=== PATIENT | female | born 1985 | race Caucasian/White ===

== ENCOUNTER 2020-01-24 12:34 | Outpatient (CLI) | payer BC, SELFPAY ==
--- NOTE | ~2020-01-24 | CT_ITS ---
EXAMINATION: CT abdomen pelvis wo con DATE: 01/24/2020 13:00 INDICATION: Left abdominal pain. Hematuria. TECHNIQUE: Computed tomography (CT) of the abdomen and pelvis was performed without intravenous contr ast. Automated exposure control and iterative reconstruction technique were employed. The dose-length product was 185.04 mGy-cm. COMPARISON: None. FINDINGS: The visualized portions of the lung bases are clear without pneumonia or pleural effusion. The heart size is normal. No pericardial effusion. There are bilateral breast implants. The liver, ga llbladder, spleen, pancreas, adrenal glands, and right kidney are normal. There is mild left hydronep hrosis. There is a 4 mm stone in proximal left ureter. There are no dilated loops of bowel. The appen sabrina is not visualized. There are no pathologically enlarged lymph nodes. There is no free intraperito nisreen fluid. There are benign bone islands in proximal right femur. There is mild lumbar spondylosis. IMPRESSION: 1. 4 mm stone in proximal left ureter with mild left hydronephrosis. Reviewed, dictated and finalized at location B.
== END 2020-01-24 12:35 | disposition home or self-care (01) ==
PROVIDERS: PCP Family Medicine; Visit Provider Student in an Organized Health Care Education/Training Program
DX: N23 Unspecified renal colic (principal); N20.1 Calculus of ureter
CPT/HCPCS: 74176

== ENCOUNTER 2020-07-02 06:50 | Outpatient (NON) | payer OTHER, SELFPAY ==
[2020-07-02 21:44] LABS: SARS-CoV-2 RNA PCR Negative
== END 2020-07-02 06:51 ==
LOC: ANHCOVIDDT 06:55
PROVIDERS: PCP Family Medicine
DX: R68.89 Other general symptoms and signs (principal); Z20.822 Contact with and (suspected) exposure to COVID-19
CPT/HCPCS: C9803; U0003; U0005

== ENCOUNTER 2024-10-05 01:28 | Observation (INO) | payer OTHER, SELFPAY ==
[2024-10-05] VITALS (18 sets, daily range): BP systolic 100–118; BP diastolic 59–67; PULSE 71–92; RESP 18; TEMP 36.4–36.8; O2SAT 96–100; BMI 30.2
--- NOTE | ~2024-10-05 | US_ITS ---
EXAMINATION: US OB limited DATE: 10/05/2024 08:11 INDICATION: Bleeding during second trimester . TECHNIQUE: Real-time ultrasound of the pelvis was performed. The interpreting radiologist was not pre sent for the study. COMPARISON: None. FINDINGS: There is a single living fetus in breech presentation. The placenta is posterior and low-lying with caudal margin 1.1 cm in the from the internal cervical os. Normal cervical length of 4.4 cm. he art rate is 140 beats per minute (bpm). The amniotic fluid volume is subjectively normal. IMPRESSION: 1. Single living fetus in breech presentation with heart rate of 140 bpm. 2. Low-lying posterior placenta with caudal margin 1.1 cm the internal cervical os. 3. Normal cervical length of 4.4 cm. Reviewed, dictated and finalized at location A. IMPRESSION: 1. Single living fetus in breech presentation with heart rate of 140 bpm . 2. Low-lying posterior placenta with caudal margin 1.1 cm the internal cervical os. 3. Normal cervical length of 4.4 cm.
--- OUTSIDE RECORDS SUMMARY | 2024-10-05 01:38 | XMS_ITS | Encounter Summary ---
Author Organization [facility] Address [facility] [place] [address] Care Team Providers Care Bone Char Operator Name Role Phone Hayde Lees MD Primary Care Provider [phone] Encounter Details Date Type Department Care Team (Late st Contact Info) Description 07/08/2021 [employer] Message Enc [facility] Medical Group Family Medicine - [place] [address] [facility] [address], [address] [place] [address] Mychart, [facility] Provider Mychart Question Social History Tobacco Use Types Packs/Day Years Used Date Smoking Tobacco: Never Smokeless Tobacco: Never Alcohol Use Standard Drinks/Week Comments Yes 0 (1 standard drink = 0.6 oz pur e alcohol) on occasion AUDIT-C Answer Date Recorded Q1: How often do you have a drink containing alc ohol? Monthly or less 05/05/2020 Q2: How many drinks containi ng alcohol do you have on a typical day when you are drinking? 1 or 2 05/05/2020 Q3: How often do you have si x or more drinks on one occasion? Never 05/05/2020 PHQ-2 Answer Date Recorded PHQ-2 Score - If the patient scores above 3, please move on to questions 3-9 0 07/01/2020 Comments No Sex and Gender Information Value Date Recorded Sex Assigned at Not on file Legal Sex Female 4:01 PM COMMANDING OFFICER TRAFFIC DIVISION Gender Identity Not on file Sexual Orientation Not on file COVID-19 Exposure Response Date Recorded In the last month, have you been in contact with someone who was confirmed or suspected to have Coronavirus / COVID-19? No / Unsure 06/10/2021 9:11 AM COMMANDING OFFICER TRAFFIC DIVISION documented as of this encounter Plan of Treatment Not on file documented as of this encounter Visit Diagnoses Not on filedocumented in this encounter Additional Health Concerns Assessment Noted Time PHQ-9 Depression Total Score: 0 07/01/19 2:03 PM COMMANDING OFFICER TRAFFIC DIVISION documented as of this encounter Care Teams Bone Char Operator Relationship Specialty Start Date End Date Hayde Lees MD [address] [facility] [address] [place] [phone] PCP - General FAMILY PRACTICE 04/21/21 documented as of this encounter
--- OUTSIDE RECORDS SUMMARY | 2024-10-05 01:38 | XMS_ITS | Encounter Summary ---
Author Organization [facility] Address [facility] [place] [address] Care Team Providers Care Blasting Entryman Name Role Phone Hayde Lees MD Primary Care Provider Encounter Details Date Type Department Care Team (Late st Contact Info) Description 09/16/2024 [employer] Message [facility] Provider ACTION REQUIRED Social History Tobacco Use Types Packs/Day Years Used Date Smoking Tobacco: Never Passive Smoke Exposure: Past Smokeless Tobacco: Never Alcohol Use Standard Drinks/Week [...] occasion? Never 05/05/2020 PHQ-2 Answer Date Recorded Patient Health Questionnaire-2 Score 2 04/03/2024 Comments No Sex and Gender Information Value Date Recorded Sex Assigned at Not on file Legal Sex Female 4:01 PM DIRECTOR CHEMISTRY Gender Identity Not on file Sexual Orientation Not on file documented as of this encounter Plan of Treatment Not on file documented as of this encounter Visit Diagnoses Not on filedocumented in this encounter Additional Health Concerns Assessment Noted Time PHQ-9 Depression Total Score: 4 04/03/20 24 10:23 AM CDT documented as of this encounter Care Teams Blasting Entryman Relationship Specialty Start Date End Date Hayde Lees MD [address] [facility] [address] [place] [phone] PCP - General FAMILY PRACTICE 04/21/21 documented as of this encounter
--- OUTSIDE RECORDS SUMMARY | 2024-10-05 01:38 | XMS_ITS | Clinical Summary ---
Author Organization [facility] Address [address] [place] [address] Care Team Providers Care Dike Supervisor Name Role Phone Hayde Lees MD Primary Care Provider [phone] Allergies Active Allergy Reactions Criticality Noted Date Comments Covid-19 Mrna Vacc (Moderna) Itching High 023 Dermatographia Medications calcium-magnesiu m-zinc 333-133-5 MG Tab Take 1 tablet by mouth daily. Active buPROPion XL (WELLBUTRIN XL) 150 MG 24 hr tabletIndication s:Generalized anxiety disorder TAKE 1 TABLET BY MOUTH EVERY DAY 90 tablet 03/29/2023 Active Ergocalciferol (VITAMIN D OR) Activ e escitalopram (LEXAPRO) 20 MG tabletIndication s:Anxiety with depression TAKE 1 TABLET BY MOUTH EVERY DAY 90 tablet 05/08/2024 Active Active Problems Problem Noted Date Diagnosed Date Mixed obsessional thoughts and acts 09/07/2022 Anxiety with depression 05/05/2020 Low back pain, unspecified b ack pain laterality, unspecified chronicity, unspecified whether sciatica present 05/05/2020 Resolved Problems Problem Noted Date Diagnosed Date Resolved Date Healthcare maintenance 05/05/202005/11 Encounters Date Type Department Care Team Description 09/16/2024 [facility]etsy [facility] BUSINESS OFFICE [facility] Provider ACTION REQUIRED from Last 3 Months Immunizations Immunization Administration Dates Next Due Flucelvax 6 Months+ (Prefill ed Syringe) 03/03/2020 Influenza (Generic) 03/10/2017 Influenza Adult (Generic) 04/11/2022,,03/03/2020,2018,02/21/2018,03/10/2017,08/12/2016 Tdap (Generic) 04/30/2019 Family History Medical History Relation Comments Hypertension Brother Hypertension Father Heart Disease Maternal Grandmother at age 49 Cancer Mother breast cancer Hyperlipidemia Mother Colon Cancer Neg Hx Ovarian Cancer Neg Hx Relation Status Comments Brother Alive Father Alive Maternal Grandmother Mother Alive Social History Tobacco Use Types Packs/Day Years Used Date Smoking Tobacco: Never Passive Smoke Exposure: Past Smokeless Tobacco: Never Tobacco Cessation:Counseling Given: No Alcohol Use Standard Drinks/Week Comments Yes 0 [...] on file Legal Sex Female 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 Gender Identity Not on file Sexual Orientation Not on file Last Filed Vital Signs Vital Sign Reading Time Taken Comments Blood Pressure 109/71 12/19/2023 12:59 AM CDT Pulse 69 12/19/2023 12:59 AM CDT Temperature 36.7 C (98.1 F) 12/19/2023 12:59 AM CDT Respiratory Rate 15 12/19/2023 12:59 AM CDT Oxygen Saturation 98% 12/19/2023 12:59 AM CDT Inhaled Oxygen Concentration - - Weight 65.8 kg (145 lb) 12/19/2023 12:59 AM CDT Height 167.6 cm (5' 6 ) 12/19/2023 12:59 AM CDT Body Mass Index 23.4 12/19/2023 12:59 AM CDT Plan of Treatment Health Maintenance Due Date Last Done Comments Cervical Cancer Screening Pap Smear (Age 30 to 64) Every 3 Years 1985 Hepatitis C 09/27/2003 Hepatitis B Vaccines (1 of 3 - 19+ 3-dose series) 2004 Annual Physical 04/21/2022 04/21/2021 Cervical Cancer Screening Pap with HPV Testing (Age 30 to 64) Every 5 Years 04/03/2023 04/03/2018 Cervical Cancer Screening with HPV 04/03/2023 COVID-19 Vaccine ( season) 2024 04/25/2022, 04/23/2021, 10/08/2020, Additional history exists PHQ-2 (Physician Crow) 06/12/2024 04/03/2024 DTaP, Tdap and Td Vaccines (2 - Td or Tdap) 04/30/2029 04/30/2019 HPV Vaccines Aged Out No longer eligi ble based on patient's age to complete this topic Meningococcal B Vaccine Aged Out No l onger eligible based on patient's age to complete this topic Meningococcal Vaccine Aged Out No ellie sonia eligible based on patient's age to complete this topic Pneumococcal Vaccine: Pediatrics (0 to 5 Years) and At-Risk Patients (6 to 49 Years) Aged Out No longer eligible based on patient's age to complete this topic RSV Immunizations Under 20 Months Aged Out No longer eligible based on patient's age to complete this topic Procedures Procedure Name Priority Date/Time Associated Diagnosis Comments OUTSIDE CYTOPATH CERV/VAG INTERPRET (PAP) 04/03/2018 from Last 3 Months or Most Recently Relevant to Health Maintenance Results * OUTSIDE CYTOPATH VAG/CERV PAP WITH HPV (04/03/2018) 04/03/2018 Narrative 04/03/2018 Ordered by an unspecified provider. us Documents Scanned SCANNING Final Result from Last 3 Months or Most Recently Relevant to Health Maintenance Insurance [facility] Care Teams Dike Supervisor Relationship Specialty Start Date End Date Hayde Lees MD [address] [facility] [address] [place] [address] PCP - General FAMILY PRACTICE 04/21/21
--- OUTSIDE RECORDS SUMMARY | 2024-10-05 01:38 | XMS_ITS | Encounter Summary ---
Author Organization [facility] Address [facility] [place] [address] Care Team Providers Care Government Teacher Name Role Phone Hayde Lees MD Primary Care Provider [phone] Encounter Details Date Type Department Care Team (Late st Contact Info) Description 06/19/2021 MyChart Message Enc [facility] Medical Group Family Medicine - [place] [address] [facility], [address] [place] [address] Hayde Lees MD [address] [facility] [address] [place] [address] OCD / anxiety Social History Tobacco Use Types Packs/Day Years [...] on file Legal Sex Female 4:01 PM CIGARETTE MAKING MACHINE 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 No / Unsure 06/10/2021 9:11 AM CIGARETTE MAKING MACHINE HOPPER FEEDER documented as of this encounter Progress Notes * Hayde Lees MD - 06/21/2021 8:54 AM CST Agree with seeing counselor. We can also increase dose or change to another SSRI but sertraline is used for OCD. I think OCD is mostly treated with counseling. I would recommend she see me in 4-6 weeks after seeing counselor to discuss. RETTE MAKING MACHINE HOPPER FEEDER documented in this encounter Plan of Treatment Not on file documented as of this encounter Visit Diagnoses Not on filedocumented in this encounter Additional Health Concerns Assessment Noted Time PHQ-9 Depression Total Score: 0 07/01/19 21 2:03 PM CIGARETTE MAKING MACHINE HOPPER FEEDER documented as of this encounter Care Teams Government Teacher Relationship Specialty Start Date End Date Hayde Lees MD [address] [phone] PCP - General FAMILY PRACTICE 04/21/21 documented as of this encounter
--- OUTSIDE RECORDS SUMMARY | 2024-10-05 01:38 | XMS_ITS | Encounter Summary ---
Author Organization [facility] Address [facility] [place] [address] Care Team Providers Care Poleyard Supervisor Name Role Phone Hayde Lees MD Primary Care Provider [phone] Encounter Details Date Type Department Care Team (Late st Contact Info) Description 06/06/2021 MyChart Message Enc [facility] Medical Group Family Medicine - [place] [address] [place] [address] Hayde Lees MD [address] [facility] [address] [place] [address] Massage Social History Tobacco Use Types Packs/Day Years [...] on file Legal Sex Female 4:01 PM CORONARY CARE UNIT NURSE Gender Identity Not on file Sexual Orientation Not on file COVID-19 Exposure Response Date Recorded In the last month, have you been in contact with someone who was confirmed or suspected to have Coronavirus / COVID-19? No / Unsure 05/19/2021 10:05 AM CORONARY CARE UNIT NURSE documented as of this encounter Plan of Treatment Not on file documented as of this encounter Visit Diagnoses Not on filedocumented in this encounter Additional Health Concerns Assessment Noted Time PHQ-9 Depression Total Score: 0 07/01/19 21 2:03 PM CORONARY CARE UNIT NURSE documented as of this encounter Care Teams Poleyard Supervisor Relationship Specialty Start Date End Date Hayde Lees MD [address] [facility] [address] [place] [phone] PCP - General FAMILY PRACTICE 04/21/21 documented as of this encounter
--- OUTSIDE RECORDS SUMMARY | 2024-10-05 01:39 | XMS_ITS | Encounter Summary ---
Author Organization [facility] Address [facility] [place] [address] Care Team Providers Care Feather Renovator Name Role Phone Hayde Lees MD Primary Care Provider [phone] Encounter Details Date Type Department Care Team (Late st Contact Info) Description 05/04/2022 Hively Message Enc [facility] Medical Group Family Medicine - [place] [address] [facility], [address] [place] [address] [facility] Provider medication refill request Social History Tobacco Use Types Packs/Day Years [...] on file Legal Sex Female 4:01 PM OTOLARYNGOLOGY NURSE Gender Identity Not on file Sexual Orientation Not on file documented as of this encounter Plan of Treatment Not on file documented as of this encounter Visit Diagnoses Not on filedocumented in this encounter Additional Health Concerns Assessment Noted Time PHQ-9 Depression Total Score: 0 07/01/19 2:03 PM OTOLARYNGOLOGY NURSE documented as of this encounter Care Teams Feather Renovator Relationship Specialty Start Date End Date Hayde Lees MD [address] [address] [place] [address] PCP - General FAMILY PRACTICE 04/21/21 documented as of this encounter
--- OUTSIDE RECORDS SUMMARY | 2024-10-05 01:39 | XMS_ITS | Clinical Summary ---
Author Organization [facility] Address [address] [facility] [place] [address] Care Team Providers Care Latcher Name Role Phone Abel Montemayor MD Primary Care Provider [phone] Source Comments [employer] [facility],non-owned Affiliates and Associated Physician Practices is amultiple site organization consisting of ambulatory clinics and hospital sitesin [place], [place], [place] and [place]. This disclosure is being madepursuant to the Care Everywhere program and may not contain all information available regarding this patient. Last updated 18.[employer] Allergies No known active allergies Medications * Be aware that medications may not be up to date on this document. Alwaysverify current medications with the patient. sertraline (ZOLOFT) 50 MG tablet Take 25 mg by mouth once daily Active benzonatate (TESSALON) 200 MG capsuleIndicati ons:Viral URI with cough Take 1 capsule by mouth 3 times daily as needed for Cough 30 capsule 07/26/2017 Active fluticasone propionate (FLONASE) 50 MCG/ACT nasal spray [place] 2 sprays into each nostril once daily 1 bottles 07/26/2017 Active Family History Medical History Relation Name Comments CAD (Coronary Artery Disease) Maternal Grandmother Cancer - Breast Mother Relation Name Status Comments Maternal Grandmother Mother Alive Social History Tobacco Use Types Packs/Day Years Used Date Smoking Tobacco: Never Smokeless Tobacco: Never Comments No Sex and Gender Information Value Date Recorded Sex Assigned at Not on file Legal Sex Female 9:44 AM NURSERY TEACHER Gender Identity Not on file Sexual Orientation Not on file Last Filed Vital Signs Vital Sign Reading Time Taken Comments Blood Pressure 104/62 07/26/2017 4:36 PM NURSERY TEACHER Pulse 85 07/26/2017 4:36 PM NURSERY TEACHER Temperature 36.9 C (98.5 F) 07/26/2017 4:36 PM NURSERY TEACHER Respiratory Rate 16 07/26/2017 4:36 PM NURSERY TEACHER Oxygen Saturation 98% 07/26/2017 4:36 PM NURSERY TEACHER Inhaled Oxygen Concentration - - Weight 62.6 kg (138 lb) 07/26/2017 4:36 PM NURSERY TEACHER Height 167.6 cm (5' 6 ) 07/26/2017 4:36 PM NURSERY TEACHER Body Mass Index 22.27 07/26/2017 4:36 PM NURSERY TEACHER Plan of Treatment Health Maintenance Due Date Last Done Comments HIV SCREENING 2000 HEPATITIS C SCREENING 09/22/2003 DTAP/TDAP/TD VACCINES (1 - Tdap) 2004 HEPATITIS B VACCINE (1 of 3 - 19+ 3-dose series) 2004 COVID-19 VACCINE (1 - 2023-2 5 season) 2024 DEPRESSION SCREENING 06/12/2024 INFLUENZA VACCINE (Season Ended) 2025 ZOSTER VACCINE (1 of 2) 09/27/2035 HIB VACCINE Aged Out No longer eligi ble based on patient's age to complete this topic HPV VACCINE Aged Out No longer eligi ble based on patient's age to complete this topic MENINGOCOCCAL (Group B) VACC INE SHARED DECISION-MAKING Aged Out No longer eligibl e based on patient's age to complete this topic MENINGOCOCCAL GROUPS A/C/Y/W VACCINE Aged Out No longer eligible b ased on patient's age to complete this topic PNEUMOCOCCAL VACCINE Aged Out No long er eligible based on patient's age to complete this topic Insurance [facility] Care Teams Latcher Relationship Specialty Start Date End Date Abel Montemayor MD [facility] [place] [phone] PCP - General Family Medicine 07/26/17
--- OUTSIDE RECORDS SUMMARY | 2024-10-05 01:39 | XMS_ITS | Encounter Summary ---
Author Organization [facility] Address [facility] [place] [address] Care Team Providers Care Illuminator Name Role Phone Hayde Lees MD Primary Care Provider [phone] Encounter Details Date Type Department Care Team (Late st Contact Info) Description 11/01/2021 MyChart Message Enc [facility] Medical Group Family Medicine - [place] [address] [facility] [place] [address] Hayde Lees MD [address] [facility] [address] [place] [address] Salmonella Social History Tobacco Use Types Packs/Day Years [...] on file Legal Sex 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 Gender Identity Not on file Sexual Orientation Not on file documented as of this encounter Progress Notes * Hayde Lees MD - 11/02/2021 11:18 AM CDT Sounds like she is recovering from her diarrhea also please have her back an appointment to discussher PMS documented in this encounter Plan of Treatment Not on file documented as of this encounter Visit Diagnoses Not on filedocumented in this encounter Additional Health Concerns Assessment Noted Time PHQ-9 Depression Total Score: 0 07/01/19 2:03 PM MACHINE SILVER STRIPPER documented as of this encounter Care Teams Illuminator Relationship Specialty Start Date End Date Hayde Lees MD [address] [facility] [address] [place] [phone] PCP - General FAMILY PRACTICE 04/21/21 documented as of this encounter
--- OUTSIDE RECORDS SUMMARY | 2024-10-05 01:39 | XMS_ITS | Encounter Summary ---
Author Organization [facility] Address [address] [place] [address] Care Team Providers Care Dial Buffer Name Role Phone Hayde Lees MD Primary Care Provider [phone] Reason for Visit * Reason Onset Date Comments Appointment Request 07/04/2022 VV request Encounter Details Date Type Department Care Team (Late st Contact Info) Description 07/04/2022 MyCDigital Dandeliont Message Enc [facility] Medical Group Family Medicine - [place] [address] [facility] [place] [address] Hayde Lees MD [address] [address] Sinuses Social History Tobacco Use Types Packs/Day Years [...] on file Legal Sex Female 4:01 PM REVENUE MANAGER Gender Identity Not on file Sexual Orientation Not on file documented as of this encounter Progress Notes * Bessie Lamb MA - 07/06/2022 9:46 AM CST Calling patient to find out if she would like to do a VV today. Patient was not available. Left a vmm to contact us back. If patient calls back please offer her a vv appointment today 20 min. NUE MANAGER documented in this encounter Plan of Treatment Not on file documented as of this encounter Visit Diagnoses Not on filedocumented in this encounter Additional Health Concerns Assessment Noted Time PHQ-9 Depression Total Score: 0 07/01/19 2:03 PM REVENUE MANAGER documented as of this encounter Care Teams Dial Buffer Relationship Specialty Start Date End Date Hayde Lees MD [address] [phone] PCP - General FAMILY PRACTICE 04/21/21 documented as of this encounter
--- NOTE | 2024-10-05 02:07 | PC.NURSE ---
Patient arrives to OB unit with complaints of vaginal bleeding and pressure. Patient states the bleeding started after having sex around 2315. Patient states she has +FM and no LOF. Patient states there was a big clot, but it has been light pink spotting since the initial bleeding began. Patient states she has been having back pain and pelvic pressure for a few weeks. Patient states she has had andree thibodeaux, but no contractions. Patient states she has a low lying placenta with this , but no other complications. Patient denies being on pelvic rest. Patient states she is also moving out of her house and has been packing boxes for the past few days. Patient is a with an EDC of 01/24/25.
--- NOTE | 2024-10-05 02:10 | OBADM ---
This patient, Belen Mueller, admitted to the OB room OB Post 117 for observation. Patient/family oriented to hospital policies and general routines including ID bracelet, bed and alarms, visiting hours, pain management, procedures, bathroom and other care routines, personal items, smoking policy, room service/diet, and visiting hours. Patient/Family are encouraged to report perceived risks to care and to ask questions if they do not understand what they are told or what they should do.
--- NOTE | 2024-10-05 02:27 | PC.NURSE ---
0220- RN at bedside adjusting FHT monitor. Patient states that when she is having the andree thibodeaux, she is also feeling pelvic/vaginal pressure at the same time. Patient states it does not last long. RN gave patient the marker button to linette when she is feeling that.
[2024-10-05 02:40] LABS: Add Urine Microscopic? YES; Appearance Urine Clear (Clear); Bacteria Urine None Seen /hpf; Bilirubin Urine Negative (Negative); Blood Urine 3+ (Negative); Color Urine Yellow (Yellow); Glucose Urine UA Negative (Negative); Ketones Urine Negative (Negative); Leukocyte Esterase Ur Trace LEU/UL (Negative); Need Manual Microscopic Reviewed; Nitrate Urine Negative (Negative); Non Pathogenic Casts 0-2; Protein Urine 1+ mg/dL (Negative); RBC Urine 0-2 /hpf (0-2); Specific Grav Ur 1.004 (1.001-1.035); Spermatozoa Urine Present; Squamous Epithelial Cell Urine None Seen /hpf (Few); Urobilinogen Urine 0.2 mg/dL (<2.0); WBC Urine 0-5 /hpf (0-3)
--- NOTE | 2024-10-05 02:45 | PC.NURSE ---
Addendum entered by Reyna Lund RN 10/05/24 05:16: [id number] notified MD of patient arrival and patient complaints. RN notified MD that patient has not had any more bleeding since the initial episode. RN notified MD that patient states she did not need to wear a pad, but did have a light pink smear when she wiped after going to the bathroom. RN notified MD of urine result. RN also notified MD of FHT tracing that was spotty due to GA and movement, but that FHT's were in the 140's-150's. RN notified MD that abdomen is soft to palpation, but that patient was complaining of andree thibodeaux and some vaginal pressure. MD gave orders for a placenta check and cervical length ultrasound in the morning and to keep patient for observation. MD gave orders to dopple heart tones, but no continuous monitoring necessary. 0250-RN at bedside discussing plan of care with patient. Patient agrees with plan of care. RN educated to patient to notify RN if there is any increase in vaginal bleeding, decrease in movement, or if the patient was experiencing any cramping, as well as increased vaginal pressure and or pain. Patient verbalizes understanding. Original Note: 0243-RN notified MD of patient arrival and patient complaints. RN notified MD that patient has not had any more bleeding since the initial episode. RN notified MD that patient states she did not need to wear a pad, but did have a light pink smear when she wiped after going to the bathroom. RN notified MD of urine result. RN also notified MD of FHT tracing that was spotty due to GA and movement. RN notified MD that abdomen is soft to palpation, but that patient was complaining of andree thibodeaux and some vaginal pressure. MD gave orders for a placenta check and cervical length ultrasound in the morning and to keep patient for observation. MD gave orders to dopple heart tones, but no continuous monitoring necessary. 0250-RN at bedside discussing plan of care with patient. Patient agrees with plan of care. RN educated to patient to notify RN if there is any increase in vaginal bleeding, decrease in movement, or if the patient was experiencing any cramping, as well as increased vaginal pressure and or pain. Patient verbalizes understanding.
--- NOTE | 2024-10-05 07:41 | P.PNOB_ITS ---
OB - Triage/Final Diagnosis Visit Information Date of evaluation: 10/05/24 Reason for evaluation: other (bleeding) Comments/Additional reasons for admission: I have assessed the risk for this patient, Belen Mueller, and determined that she would benefit from observation care. Evaluation Laboratory results: Laboratory Tests 10/05/24 01:58 Urine Color Yellow Urine Appearance Clear Urine pH 7.0 Ur Specific [place] 1.004 Urine Protein 1+ H Urine Glucose (UA) Negative Urine Ketones Negative Ur Blood (Man) 3+ H Urine Nitrate Negative Urine Bilirubin Negative Urine Urobilinogen 0.2 Add Ur Microanalysis Reviewed Leukocyte Esterase Rfl Trace H Urine RBC 0-2 Urine WBC 0-5 Ur Squamous Epith Cells None seen Urine Bacteria None seen Urine Casts 0-2 Sperm Presence Present Vital signs: Vital Signs - 24 hr 10/05/24 01:51 10/05/24 01:56 10/05/24 02:00 Temperature Pulse Rate 84 85 Blood Pressure 118/66 118/67 Pulse Oximetry 98 99 10/05/24 02:01 10/05/24 02:06 10/05/24 02:11 Temperature Pulse Rate Blood Pressure Pulse Oximetry 99 99 99 10/05/24 02:16 10/05/24 02:21 10/05/24 02:26 Temperature Pulse Rate Blood Pressure Pulse Oximetry 99 99 99 10/05/24 02:30 10/05/24 02:31 10/05/24 02:36 Temperature Pulse Rate 81 Blood Pressure 110/64 Pulse Oximetry 99 99 10/05/24 02:41 10/05/24 04:58 10/05/24 05:01 Temperature 98.2 F Pulse Rate 79 Blood Pressure 100/59 L Pulse Oximetry 100
== END 2024-10-05 08:27 | disposition home or self-care (01) ==
PROVIDERS: Admitting Provider Obstetrics & Gynecology; PCP Family Medicine; Visit Provider Obstetrics & Gynecology
DX: O46.92 Antepartum hemorrhage, unspecified, second trimester (principal); Z3A.24 24 weeks gestation of pregnancy
CPT/HCPCS: 76815; 81001; G0378; G0379

== ENCOUNTER 2024-10-06 15:42 | Observation (INO) | payer OTHER, SELFPAY ==
--- NOTE | ~2024-10-06 | US_ITS ---
LIMITED OBSTETRIC ULTRASOUND Ordering provider: Forest Phillips MD History: . cervical length - pressure, LLP and spotting. . Comparison: None. FINDINGS/impression: MATERNAL CERVIX: Measures 4.4 cm which is normal (normal is equal to or greater than 3.0 cm). PRESENTATION: Breech. Longitudinal lie. PLACENTAL LOCATION: Posterior No previa. Distance to the cervix is 1.9 cm. HEART RATE: 147 bpm (normal is between 110 to 160 bpm). OTHER: Maternal ovaries not visualized. Reviewed, dictated and finalized at location A.
--- OUTSIDE RECORDS SUMMARY | 2024-10-06 15:48 | XMS_ITS | Encounter Summary ---
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
--- OUTSIDE RECORDS SUMMARY | 2024-10-06 15:48 | XMS_ITS | Clinical Summary ---
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 Care Teams Home Care Rn Relationship Specialty Start Date End Date Hayde Lees MD [address] [facility] [address] [place] [address] PCP - General FAMILY PRACTICE 04/21/21
--- OUTSIDE RECORDS SUMMARY | 2024-10-06 15:48 | XMS_ITS | Clinical Summary ---
Author Organization [facility] Address [address] [place] [address] Care Team Providers Care Customer Training Specialist Name Role Phone Abel Montemayor MD Primary Care Provider [phone] Source Comments [employer] [facility],non-owned Affiliates and Associated Physician Practices is amultiple site organization consisting of ambulatory clinics and hospital sitesin [place], [place], [place] and [place]. This disclosure is being madepursuant to the Care Everywhere program and may not contain all information available regarding this patient. Last updated 18.[employer] Allergies No known active allergies Medications * [...] fluticasone propionate (FLONASE) 50 MCG/ACT nasal spray [place] 2 sprays into each nostril once daily [...] on file Legal Sex Female 9:44 AM CLOSING SPECIALIST Gender Identity Not on file Sexual Orientation Not on file Last Filed Vital Signs Vital Sign Reading Time Taken Comments Blood Pressure 104/62 07/26/2017 4:36 PM CLOSING SPECIALIST Pulse 85 07/26/2017 4:36 PM CLOSING SPECIALIST Temperature 36.9 C (98.5 F) 07/26/2017 4:36 PM CLOSING SPECIALIST Respiratory Rate 16 07/26/2017 4:36 PM CLOSING SPECIALIST Oxygen Saturation 98% 07/26/2017 4:36 PM CLOSING SPECIALIST Inhaled Oxygen Concentration - - Weight 62.6 kg (138 lb) 07/26/2017 4:36 PM CLOSING SPECIALIST Height 167.6 cm (5' 6 ) 07/26/2017 4:36 PM CLOSING SPECIALIST Body Mass Index 22.27 07/26/2017 4:36 PM CLOSING SPECIALIST Plan of Treatment Health Maintenance Due Date [...] age to complete this topic Insurance [facility] Care Teams Customer Training Specialist Relationship Specialty Start Date End Date Abel Montemayor MD [facility] [place] [phone] PCP - General Family Medicine 07/26/17
--- OUTSIDE RECORDS SUMMARY | 2024-10-06 15:48 | XMS_ITS | Encounter Summary ---
Author Organization [facility] Address [facility] [place] [address] Care Team Providers Care [place] Soundings Group Leader Name Role Phone Hayde Lees MD Primary Care Provider [phone] Encounter Details Date Type Department Care Team (Late st Contact Info) Description 06/06/[address] 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 No / Unsure 05/19/2021 10:05 AM GLOVE CLEANER documented as of this encounter Plan of Treatment Not on file documented as of this encounter Visit Diagnoses Not on filedocumented in this encounter Additional Health Concerns Assessment Noted Time PHQ-9 Depression Total Score: 0 07/01/19 21 2:03 PM GLOVE CLEANER documented as of this encounter Care Teams [place] Soundings Group Leader Relationship Specialty Start Date End Date Hayde Lees MD [address] [facility] [address] [place] [phone] PCP - General FAMILY PRACTICE 04/21/21 documented as of this encounter
--- OUTSIDE RECORDS SUMMARY | 2024-10-06 15:48 | XMS_ITS | Encounter Summary ---
Author Organization [facility] Address [facility] [place] [address] Care Team Providers Care Tree Wrapper Name Role Phone Hayde Lees MD Primary Care Provider [phone] Encounter Details Date Type Department Care Team (Late st Contact Info) Description 06/19/2021 MyChart Message Enc [facility] Family Medicine - [place] [address] [facility], [address] [place] [address] Hayde Lees MD [address] [facility] [address] [place] [address] OCD / anxiety Social History [...] on file Legal Sex Female 4:01 PM MENTAL RETARDATION NURSE Gender Identity Not on file Sexual Orientation Not on file COVID-19 Exposure Response Date Recorded In the last month, have you been in contact with someone who was confirmed or suspected to have Coronavirus / COVID-19? No / Unsure 06/10/2021 9:11 AM MENTAL RETARDATION NURSE documented as of this encounter Progress Notes * Hayde Lees MD - 06/21/2021 8:54 AM CST Agree with seeing counselor. We can also increase dose or change to another SSRI but sertraline is used for OCD. I think OCD is mostly treated with counseling. I would recommend she see me in 4-6 weeks after seeing counselor to discuss. AL RETARDATION NURSE documented in this encounter Plan of Treatment Not on file documented as of this encounter Visit Diagnoses Not on filedocumented in this encounter Additional Health Concerns Assessment Noted Time PHQ-9 Depression Total Score: 0 07/01/19 21 2:03 PM MENTAL RETARDATION NURSE documented as of this encounter Care Teams Tree Wrapper Relationship Specialty Start Date End Date Hayde Lees MD [address] [phone] PCP - General FAMILY PRACTICE 04/21/21 documented as of this encounter
--- OUTSIDE RECORDS SUMMARY | 2024-10-06 15:48 | XMS_ITS | Encounter Summary ---
Author Organization [facility] Address [address] [place] [address] Care Team Providers Care Real Estate Financial Analyst Name Role Phone Hayde Lees MD Primary Care Provider [phone] Reason for Visit * Reason Onset Date Comments Appointment Request 07/04/2022 VV request Encounter Details Date Type Department Care Team (Late st Contact Info) Description 07/04/2022 MyCCupomNowt Message Enc [facility] Family Medicine - [place] [address] [facility], [address] [place] [address] Hayde Lees MD [address] [address] Sinuses Social History Tobacco Use [...] on file Legal Sex Female 4:01 PM GRIEVANCE AND APPEALS SPECIALIST Gender Identity Not on file Sexual [...] her a vv appointment today 20 min. VANCE AND APPEALS SPECIALIST documented in this encounter Plan of Treatment Not on file documented as of this encounter Visit Diagnoses Not on filedocumented in this encounter Additional Health Concerns Assessment Noted Time PHQ-9 Depression Total Score: 0 07/01/19 2:03 PM GRIEVANCE AND APPEALS SPECIALIST documented as of this encounter Care Teams Real Estate Financial Analyst Relationship Specialty Start Date End Date Hayde Lees MD [address] [phone] PCP - General FAMILY PRACTICE 04/21/21 documented as of this encounter
--- OUTSIDE RECORDS SUMMARY | 2024-10-06 15:48 | XMS_ITS | Encounter Summary ---
Author Organization [facility] Address [facility] [place] [address] Care Team Providers Care Gallery Director Name Role Phone Hayde Lees MD Primary Care Provider [phone] Encounter Details Date Type Department Care Team (Late st Contact Info) Description 11/01/2021 MyChart Message Enc [facility] Family Medicine - [place] [address] [facility], [address] [place] [address] Hayde Lees MD [address] [facility] [address] [place] [address] Salmonella Social History Tobacco Use [...] on file Legal Sex Female 4:01 PM POWER PLANT OPERATORS SUPERVISOR Gender Identity Not on file Sexual Orientation [...] Depression Total Score: 0 07/01/19 2:03 PM POWER PLANT OPERATORS SUPERVISOR documented as of this encounter Care Teams Gallery Director Relationship Specialty Start Date End Date Hayde Lees MD [address] [facility] [address] [place] [phone] PCP - General FAMILY PRACTICE 04/21/21 documented as of this encounter
--- OUTSIDE RECORDS SUMMARY | 2024-10-06 15:48 | XMS_ITS | Encounter Summary ---
Author Organization [facility] Address [facility] [place] [address] Care Team Providers Care Line Cleaner Name Role Phone Hayde Lees MD Primary Care Provider [phone] Encounter Details Date Type Department Care Team (Late st Contact Info) Description 07/08/2021 [employer] Message Enc [facility] Family Medicine - [place] [address] [facility], [address] [place] [address] Mychart, [facility] Provider Mychart Question Social History Tobacco Use [...] on file Legal Sex Female 4:01 PM FOOD CRITIC Gender Identity Not on file Sexual Orientation Not on file COVID-19 Exposure Response Date Recorded In the last month, have you been in contact with someone who was confirmed or suspected to have Coronavirus / COVID-19? No / Unsure 06/10/2021 9:11 AM FOOD CRITIC documented as of this encounter Plan of Treatment Not on file documented as of this encounter Visit Diagnoses Not on filedocumented in this encounter Additional Health Concerns Assessment Noted Time PHQ-9 Depression Total Score: 0 07/01/19 2:03 PM FOOD CRITIC documented as of this encounter Care Teams Line Cleaner Relationship Specialty Start Date End Date Hayde Lees MD [address] [facility] [address] [place] [phone] PCP - General FAMILY PRACTICE 04/21/21 documented as of this encounter
--- OUTSIDE RECORDS SUMMARY | 2024-10-06 15:48 | XMS_ITS | Encounter Summary ---
Author Organization [facility] Address [facility] [place] [address] Care Team Providers Care Architect Name Role Phone Hayde Lees MD Primary Care Provider [phone] Encounter Details Date Type Department Care Team (Late st Contact Info) Description 05/04/2022 [employer] Message Enc [facility] Family Medicine - [place] [address] [facility], [address] [place] [address] [employer] ([employer])[facility], [facility] Provider medication refill request Social History [...] on file Legal Sex Female 4:01 PM MANAGER METROLOGY Gender Identity Not on file Sexual Orientation Not on file documented as of this encounter Plan of Treatment Not on file documented as of this encounter Visit Diagnoses Not on filedocumented in this encounter Additional Health Concerns Assessment Noted Time PHQ-9 Depression Total Score: 0 07/01/19 2:03 PM MANAGER METROLOGY documented as of this encounter Care Teams Architect Relationship Specialty Start Date End Date Hayde Lees MD [address] [place] [address] PCP - General FAMILY PRACTICE 04/21/21 documented as of this encounter
[2024-10-06 16:09] VITALS: BP 116/62; PULSE 88
--- NOTE | 2024-10-06 16:12 | PC.NURSE ---
Dr Jesus notified of pressure and cramping, order for repeat cervical length.
[2024-10-06 16:19] VITALS: BMI 29.2
--- NOTE | 2024-10-06 16:19 | OBADM ---
This patient, Belen Mueller, admitted to the OB room OB Post 115 for observation. Patient/family oriented to hospital policies and general routines including ID bracelet, bed and alarms, visiting hours, pain management, procedures, bathroom and other care routines, personal items, smoking policy, room service/diet, and visiting hours. Patient/Family are encouraged to report perceived risks to care and to ask questions if they do not understand what they are told or what they should do.
--- NOTE | 2024-10-06 17:19 | PM.IMHP ---
H&P: HPI History of Present Illness Date/Time: 10/06/24 17:19 Chief Complaint: Pelvic discussed Narrative: 30 multiparous patient 20 weeks returns today having some spotting bleeding yesterday ultrasound showed the cervix to be thick closed with a low lying placenta as cm cervix she has had no more bleeding feels discomfort ultrasound here today shows similar cervical length with change findings. She is admitted for observation Review of Systems Review of Systems: All systems reviewed & are unremarkable except as noted in HPI and below PMFSH Family History Family History Mother Family history of malignant neoplasm of breast in first degree relative Family history of elevated blood lipids Grandparent Family history of heart disease in male family member before age 55 Father Family history of elevated blood lipids Social History Social History Smoking status: Never smoker Second hand tobacco smoke exposure: No Alcohol intake: current Substance use: never Do You Feel Safe in your Home?: Yes Lack of Transportation: No Lack of Food: Never True Current Housing: I Have Housing Concerned About Future Housing: No Difficulty Paying Gas/Electric Bills: No Difficulty Paying for Meds: No Currently Unemployed: No Education: Trade/Vocational Certificate Difficulty w/ Childcare or Family Care: No Gender identity (if verbalized by the patient): Female Spiritual care concerns: No Meds Home Medications and Allergies Home Medications ?Medication ?Instructions ?Recorded ?Confirmed ?Type vit no.95-ferrous 1 tablet PO DAILY 06/20/19 10/06/24 History fumarate 28 mg-folic acid 800 mcg tablet () bupropion HCl 150 mg 24 hr tablet, 100 mg PO DAILY@0800 10/05/24 10/06/24 History extended release escitalopram oxalate 10 mg tablet 10 mg PO DAILY 10/06/24 10/06/24 History Allergies Allergy/AdvReac Type Severity Reaction Status Date / Time No Known Allergies Allergy Verified 10/06/24 16:28 Vital Signs Vital Signs - 24 hr 10/06/24 16:09 Pulse Rate 88 Blood Pressure 116/62 Exam Const: General: cooperative and healthy appearing Nutritional Appearance: average body habitus Orientation/consciousness: oriented to person, oriented to place and oriented to time HENMT: Head: normal to inspection Resp: Effort & Inspection: normal respiratory effort Cardio: Rate: regular rate Rhythm: regular rhythm Heart sounds: S1 normal heart sound present and S2 normal heart sound present GI: Inspection: normal to inspection (Uterus soft and gravid) : External Female Exam: normal external appearance ( heart tones are reassuring and no uterine contractions seen) Assessment and Plan Assessment and plan (1) Threatened labor: Code(s): O47.00 - False labor before 37 completed weeks of gestation, unspecified trimester Status: Acute (2) Low lying placenta nos or without hemorrhage, second trimester: Code(s): O44.42 - Low lying placenta NOS or without hemorrhage, second trimester Status: Acute Plan Will continue with observation
[2024-10-06] MEDS: TERBUTALINE SULFATE 1 MG/ML VIAL 0.25 MG SUB-Q (17:25)
[2024-10-06] MEDS: ACETAMINOPHEN 500 MG TABLET 1000 MG PO (20:15)
[2024-10-06 21:30] VITALS: BP 110/55; PULSE 91
[2024-10-06] MEDS: diphenhydrAMINE HCl CAP 25 MG CAPSULE PO (22:11)
--- NOTE | 2024-10-07 07:18 | PM.OBPNVD ---
OB - PN: Subj Subjective Date/time seen: 10/07/24 07:18 Patient comments: pain well controlled OB - PN A/P Assessment and Plan (1) Threatened labor: Code(s): O47.00 - False labor before 37 completed weeks of gestation, unspecified trimester Status: Acute (2) Low lying placenta nos or without hemorrhage, second trimester: Code(s): O44.42 - Low lying placenta NOS or without hemorrhage, second trimester Status: Acute Plan home on pelvic rest Time Spent With Patient Time: Total time spent is greater than 50% in coordination of care (as documented) at patient's floor/unit and/or counseling patient: Review of Systems Review of Systems: All systems reviewed & are unremarkable except as noted in HPI and below Exam Const: General: cooperative, healthy appearing and comfortable Nutritional Appearance: average body habitus HENMT: Head: normal to inspection Resp: Effort & Inspection: normal respiratory effort Cardio: Rate: regular rate Rhythm: regular rhythm Heart sounds: S1 normal heart sound present and S2 normal heart sound present GI: Inspection: normal to inspection (soft gravid uterus .fhts reassuring)
[2024-10-07 07:22] VITALS: BP 105/59; PULSE 82
--- NOTE | 2024-10-07 07:23 | P.DS_ITS ---
DS: Admitting Diagnosis Discharge Date 10/07/2024 Admitting Diagnosis Threatened labor/low-lying placenta DS: Discharge Diagnosis Discharge Diagnosis (1) Threatened labor: Code(s): O47.00 - False labor before 37 completed weeks of gestation, unspecified trimester Status: Acute (2) Low lying placenta nos or without hemorrhage, second trimester: Code(s): O44.42 - Low lying placenta NOS or without hemorrhage, second trimester Status: Acute DS: Summary Hospital Course Reason for hospitalization: Patient was admitted on 10/06 5 a day after being observed for . She underwent ultrasound which showed no change in her cervix. Her complaints were having pain and pressure in her legs. She felt a little better when she received 1 dose of terbutaline however no contractions were seen. She observed over 24hours and no uterine activity was noted. Her symptoms improved. Hospital Course: See above Time Spent with Patient Time attestation: Total time spent providing and/or coordinating discharge services: Exam Const: General: cooperative, healthy appearing and comfortable Nutritional Appearance: average body habitus HENMT: Head: normal to inspection Resp: Effort & Inspection: normal respiratory effort Cardio: Rate: regular rate Rhythm: regular rhythm Heart sounds: S1 normal heart sound present and S2 normal heart sound present GI: Inspection: normal to inspection (soft gravid uterus .fhts reassuring) Discharge Plan Discharge Attending physician on discharge: Forest Honeycutt Discharging Clinician: Forest Honeycutt Patient Disposition: Home Activity: october shower, no straining and pelvic rest Diet: heart healthy Wound Care Instructions: follow printed instructions Patient Instructions: Antibiotic Form Patient Language: Paraguayan Stand Alone Forms: General Discharge Information Follow-up/Referrals: Forest Honeycutt MD [Physician] - Discharge Medications: Continued PNV cmb#95-ferrous fumarate-FA [] 28 mg iron- 800 mcg Tablet 1 tablet PO DAILY bupropion HCl 150 mg tablet extended release 24 hr 100 mg PO DAILY@0800 escitalopram oxalate 10 mg tablet 10 mg PO DAILY Date of admission: 10/06/24 15:42 Primary Care Provider: Albina,Abel Epstein Admitting Provider: Forest Honeycutt Attending physician on admission: Forest Honeycutt Condition: Stable
--- NOTE | 2024-10-07 07:30 | PC.NURSE ---
Dr. Helen Phillips at bedside. Discussed with patient that she is stable and can dc home to self care. Pelvic rest precautions and pt. to industrial services worker. Pt. to schedule a f/u appointment with Helen Phillips to be seen in the office monday 10/09 or 10/10.
== END 2024-10-07 09:08 | disposition home or self-care (01) ==
PROVIDERS: Admitting Provider Obstetrics & Gynecology; PCP Family Medicine; Visit Provider Obstetrics & Gynecology
DX: O47.02 False labor before 37 completed weeks of gestation, second trimester (principal); O44.42 Low lying placenta NOS or without hemorrhage, second trimester; Z3A.24 24 weeks gestation of pregnancy
CPT/HCPCS: 76815; 96372; A9270; G0378; G0379; J3105

== ENCOUNTER 2024-11-15 18:04 | Outpatient (CLI) | payer OTHER, SELFPAY ==
--- OUTSIDE RECORDS SUMMARY | 2024-11-15 18:59 | XMS_ITS | Clinical Summary ---
Author Organization [facility] [employer] Address [address] [place] [address] Care Team Providers Care Core Finisher Name Role Phone Abel Montemayor MD Primary Care Provider [phone] Source Comments [employer],non-owned Affiliates and Associated Physician Practices is amultiple site organization consisting of ambulatory clinics and hospital sitesin [place], [place], [place] and [place]. This disclosure is being madepursuant to the Care Everywhere program and may not contain all information available regarding this patient. Last updated 18.[employer] Allergies No known active allergies Medications * [...] fluticasone propionate (FLONASE) 50 MCG/ACT nasal spray [place] 2 sprays into each nostril once daily [...] on file Legal Sex Female 9:44 AM METAL EXTRUSION SUPERVISOR Gender Identity Not on file Sexual Orientation Not on file Last Filed Vital Signs Vital Sign Reading Time Taken Comments Blood Pressure 104/62 07/26/2017 4:36 PM METAL EXTRUSION SUPERVISOR Pulse 85 07/26/2017 4:36 PM METAL EXTRUSION SUPERVISOR Temperature 36.9 C (98.5 F) 07/26/2017 4:36 PM METAL EXTRUSION SUPERVISOR Respiratory Rate 16 07/26/2017 4:36 PM METAL EXTRUSION SUPERVISOR Oxygen Saturation 98% 07/26/2017 4:36 PM METAL EXTRUSION SUPERVISOR Inhaled Oxygen Concentration - - Weight 62.6 kg (138 lb) 07/26/2017 4:36 PM METAL EXTRUSION SUPERVISOR Height 167.6 cm (5' 6) 07/26/2017 4:36 PM METAL EXTRUSION SUPERVISOR Body Mass Index 22.27 07/26/2017 4:36 PM METAL EXTRUSION SUPERVISOR Plan of Treatment Health Maintenance Due Date [...] patient's age to complete this topic Insurance [facility] Care Teams Core Finisher Relationship Specialty Start Date End Date Abel Montemayor MD [facility] [place] [id number] PCP - General Family Medicine 07/26/17
[2024-11-15 19:00] VITALS: BP 112/65; PULSE 98
[2024-11-15 19:17] LABS: Add Urine Microscopic? YES; Appearance Urine Clear (Clear); Bacteria Urine 1+ /hpf; Bilirubin Urine Negative (Negative); Blood Urine Negative (Negative); Color Urine Yellow (Yellow); Glucose Urine UA 2+ mg/dL (Negative); Ketones Urine 1+ mg/dL (Negative); Leukocyte Esterase Ur 1+ LEU/UL (Negative); Nitrate Urine Negative (Negative); Non Pathogenic Casts 0-2; Protein Urine Trace mg/dL (Negative); RBC Urine 0-2 /hpf (0-2); Squamous Epithelial Cell Urine Few /hpf (Few); Urobilinogen Urine 0.2 mg/dL (<2.0); pH Urine 5.5 (5.0-9.0)
[2024-11-15 19:35] LABS: OBXCEM ROM Plus Negative (Negative)
== END 2024-11-15 20:10 | disposition home or self-care (01) ==
LOC: ANHOBOP 18:57 → ANHLDR 18:58
PROVIDERS: Obstetrics & Gynecology Gynecology; PCP Family Medicine; Visit Provider Obstetrics & Gynecology
DX: O42.90 Premature rupture of membranes, unspecified as to length of time between rupture and onset of labor, unspecified weeks of gestation (principal); Z3A.00 Weeks of gestation of pregnancy not specified
CPT/HCPCS: 59025; 81001; 84112; 87086

== ENCOUNTER 2024-11-22 20:01 | Observation (INO) | payer OTHER, SELFPAY ==
--- NOTE | 2024-11-22 20:01 | PC.NURSE ---
PT PRESENTS TO L&D WITH COMPLAINTS OF ELEVATED ANXIETY OVER THE LAST FEW DAYS. PT STATES THAT SHE HAS BEEN EXPERIENCING CHEST PAIN THAT HAS BEEN RADIATING TO HER R ARM. PT STATES THAT SHE HASN'T BEEN ABLE TO SLEEP WELL OR EAT MUCH OVER THE LAST 2 DAYS. PT STATES +FM AND DENIES VAGINAL BLEEDING OR LOF. EDC 01/24/2025, [place] 31.0.
--- OUTSIDE RECORDS SUMMARY | 2024-11-22 20:08 | XMS_ITS | Clinical Summary ---
Author Organization [facility] [employer] Address [address] [address] Care Team Providers Care Drop Shipment Clerk Name Role Phone Abel Montemayor MD Primary Care Provider [phone] Source Comments [employer],non-owned Affiliates and Associated Physician Practices is amultiple site organization consisting of ambulatory clinics and hospital sitesin [place], [place], [place] and [place]. This disclosure is being madepursuant to the Care Everywhere program and may not contain all information available regarding this patient. 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 Gender Identity Not on file Sexual Orientation Not on file Last Filed Vital Signs Vital Sign Reading Time Taken Comments Blood Pressure 104/62 07/26/2017 4:36 PM HYDRAULIC PILE HAMMER OPERATOR Pulse 85 07/26/2017 4:36 PM HYDRAULIC PILE HAMMER OPERATOR Temperature 36.9 C (98.5 F) 07/26/2017 4:36 PM HYDRAULIC PILE HAMMER OPERATOR Respiratory Rate 16 07/26/2017 4:36 PM HYDRAULIC PILE HAMMER OPERATOR Oxygen Saturation 98% 07/26/2017 4:36 PM HYDRAULIC PILE HAMMER OPERATOR Inhaled Oxygen Concentration - - Weight 62.6 kg (138 lb) 07/26/2017 4:36 PM HYDRAULIC PILE HAMMER OPERATOR Height 167.6 cm (5' 6) 07/26/2017 4:36 PM HYDRAULIC PILE HAMMER OPERATOR Body Mass Index 22.27 07/26/2017 4:36 PM HYDRAULIC PILE HAMMER OPERATOR Plan of Treatment Health Maintenance Due Date [...] patient's age to complete this topic Insurance [facility] Care Teams Drop Shipment Clerk Relationship Specialty Start Date End Date Abel Montemayor MD [facility] [place] [phone] PCP - General Family Medicine 07/26/17
--- NOTE | 2024-11-22 21:01 | PC.NURSE ---
REPORT GIVEN TO DR. CALDERA. ORDERS RECEIVED FOR AN EKG, HYDROXYZINE 25 MG PO, LACTATED RINGERS 100 ML/HR.
--- NOTE | 2024-11-22 21:06 | ECG_ITS ---
Test Date: 2024-11-22 21:52:07 Measurements Intervals [place] Rate: 93 P: 59 NM: 123 QRS: 21 QRSD: 80 T: 20 QT: 329 QTc: 410 Interpretive Statements SINUS RHYTHM LEFT ATRIAL ENLARGEMENT CANNOT R/O SEPTAL INFARCT, AGE INDETERMINATE ABNORMAL ECG No previous ECG available for comparison Electronically Signed On 11-23-2024 07:22:49 CDT by Ryan Flannery D.O.
[2024-11-22] MEDS: LACTATED RINGERS 1,000 ML 100 ML IV CONT (22:00)
[2024-11-22] MEDS: hydrOXYzine HCL 25 MG TABLET PO (22:15)
[2024-11-22 23:38] LABS: Add Urine Microscopic? YES; Appearance Urine Cloudy (Clear); Bacteria Urine 4+ /hpf; Bilirubin Urine Negative (Negative); Blood Urine Negative (Negative); Color Urine Yellow (Yellow); Glucose Urine UA Negative (Negative); Ketones Urine Negative (Negative); Leukocyte Esterase Ur 3+ LEU/UL (Negative); Mucus Urine Present /lpf; Need Manual Microscopic Reviewed; Nitrate Urine Negative (Negative); Protein Urine Trace mg/dL (Negative); RBC Urine 0-2 /hpf (0-2); Specific Grav Ur 1.016 (1.001-1.035); Squamous Epithelial Cell Urine Moderate /hpf (Few); Urobilinogen Urine 0.2 mg/dL (<2.0); WBC Urine >100 /hpf (0-3)
[2024-11-23 00:40] VITALS: BMI 28.6
[2024-11-23] MEDS: ACETAMINOPHEN 500 MG TABLET 1000 MG PO (00:53)
[2024-11-23 08:08] VITALS: PULSE 94; O2SAT 98
[2024-11-23 08:09] VITALS: BP 107/64; PULSE 80
--- NOTE | 2024-11-23 08:28 | PC.NURSE ---
Spoke to care coordination and notified of patient in need of financial resources. Instructed to print social determinants of health resources on hospital intranet. Care coordination offered to come by to discuss if patient is need of legal protection. Pt. denies feeling unsafe or in danger. Social determinants of health resources given to patient.
--- NOTE | 2024-11-23 11:15 | PC.NURSE ---
Rn at bedside with Dr. Fisher. Dr. Fisher concerned about EKG findings. Pt. not currently experiencing chest pain. Dr. Fisher discussed drawing labs and as long as labs come back insignificant pt. can dc home with OP cardiology follow up.
--- NOTE | 2024-11-23 11:38 | P.HP_ITS ---
H&P: HPI History of Present Illness Date/Time: 11/23/24 11:38 Chief Complaint: Chest pain Narrative: 39 y/o at 31 1/7 weeks here with chest pain, anxiety. Poor social situation. She feels much better after some fluids and rest overnight. No chest pain or SOB. ECG taken last night returned this morning with a reading of possible septal infarct, age indeterminate. She says her situation is currently safe at home. AVSS Heart: normal S1/S2, regular rate and rhythm Lungs Clear bilaterally ABD soft, nontender, gravid NST 150 with good variability TOCO: no contractions EXT nontender, no edema A: Chest pain likely due to anxiety, poor social situation. Abnormal ECG, but clinically not suspicious for acute MA. P: Check labs before sending home. [facility] Family History Family History Mother Family history of malignant neoplasm of breast in first degree relative Family history of elevated blood lipids Grandparent Family history of heart disease in male family member before age 55 Father Family history of elevated blood lipids Social History Social History Smoking status: Never smoker Second hand tobacco smoke exposure: No Alcohol intake: current Substance use: never Do You Feel Safe in your Home?: Yes Lack of Transportation: No Lack of Food: Never True Current Housing: I Have Housing Concerned About Future Housing: No Difficulty Paying Gas/Electric Bills: No Difficulty Paying for Meds: No Currently Unemployed: No Education: Bachelor's Degree Difficulty w/ Childcare or Family Care: No Gender identity (if verbalized by the patient): Female Spiritual care concerns: No Meds Home Medications and Allergies Home Medications ?Medication ?Instructions ?Recorded ?Confirmed ?Type vit no.95-ferrous 1 tablet PO DAILY 06/20/19 11/15/24 History fumarate 28 mg-folic acid 800 mcg tablet () bupropion HCl 150 mg 24 hr tablet, 100 mg PO DAILY@0800 10/05/24 11/15/24 History extended release escitalopram oxalate 10 mg tablet 10 mg PO DAILY 10/06/24 11/15/24 History nitrofurantoin 100 mg PO Q12HR 3 days #6 caps 11/15/24 Rx monohydrate/macrocrystals 100 mg capsule (Macrobid) Allergies Allergy/AdvReac Type Severity Reaction Status Date / Time No Known Allergies Allergy Verified 11/15/24 19:21 Vital Signs Vital Signs - 24 hr 11/23/24 08:00 11/23/24 08:08 11/23/24 08:09 Pulse Rate 80 Blood Pressure 107/64 Pulse Oximetry 98 Oxygen Delivery Room Air H&P: Results Labs Labs: Urine 11/22/24 Range/Units 23:18 Urine Color Yellow (Yellow) Urine Appearance Cloudy H (Clear) Urine pH 6.0 (5.0-9.0) Ur Specific [place] 1.016 (1.001-1.035) Urine Protein Trace (Negative) mg/dL Urine Glucose (UA) Negative (Negative) mg/dL
[2024-11-23 12:02] LABS: Hematocrit 28.7 % (37.0-47.0); Hemoglobin 9.5 g/dL (12.0-15.0); Mean Corpuscular HGB Conc 33.1 g/dl (32-36); Mean Corpuscular Hemoglobin 27.5 pg (26-34); Mean Corpuscular Volume 83.2 fl (80-100); Mean Platelet Volume 10.4 fl (7.4-10.4); Platelet Count Result 209 k/mm3 (150-375); Red Blood Count 3.45 M/mm3 (4.2-5.4); Red Cell Distribution Width 13.2 % (11.5-14.5); White Blood Count 10.4 K/mm3 (4.5-10.0)
[2024-11-23 12:12] LABS: Alanine Aminotransferase 17 U/L (6-35); Albumin Level 3.1 g/dL (3.5-5.1); Alkaline Phosphatase 93 U/L (38-126); Anion Gap 7 mmol/L (4-12); Aspartate Amino Transferase 24 U/L (14-36); Bilirubin,Total 0.3 mg/dL (0.2-1.3); Blood Urea Nitrogen 9 mg/dL (7-17); Calcium 8.3 mg/dL (8.4-10.2); Carbon Dioxide 20 mmol/L (22-30); Chloride 109 mmol/L (98-107); Estimated CRCL calculation 118 ml/min; Estimated Glomerular Filt Rate > 60; Glucose 125 mg/dL (65-110); Potassium 3.4 mmol/L (3.4-5.0); Sodium 136 mmol/L (137-145); Total Protein 6.5 g/dL (6.3-8.2)
[2024-11-23 12:24] LABS: Troponin I < 0.012 ng/mL (0.000-0.034)
--- NOTE | 2024-11-23 12:28 | PC.NURSE ---
called Dr. Fisher with lab results. Orders received to D/c patient and keep her next appointment with Dr. Flower and to fax pt. EKG to the office.
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
--- OUTSIDE RECORDS SUMMARY | 2024-11-25 08:12 | XMS_ITS | Clinical Summary ---
Author Organization [facility] [employer] Address [address] [place] [address] Care Team Providers Care Cia Agent Name Role Phone Abel Montemayor MD Primary Care Provider [phone] Source Comments [employer],non-owned Affiliates and Associated Physician Practices is amultiple site organization consisting of ambulatory clinics and hospital sitesin [place], [place], [place] and [place]. This disclosure is being madepursuant to the Care Everywhere program and may not contain all information available regarding this patient. Last updated 18.[employer] 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 Gender Identity Not on file Sexual Orientation Not on file Last Filed Vital Signs Vital Sign Reading Time Taken Comments Blood Pressure 104/62 07/26/2017 4:36 PM RAW SHELLFISH PREPARER Pulse 85 07/26/2017 4:36 PM RAW SHELLFISH PREPARER Temperature 36.9 C (98.5 F) 07/26/2017 4:36 PM RAW SHELLFISH PREPARER Respiratory Rate 16 07/26/2017 4:36 PM RAW SHELLFISH PREPARER Oxygen Saturation 98% 07/26/2017 4:36 PM RAW SHELLFISH PREPARER Inhaled Oxygen Concentration - - Weight 62.6 kg (138 lb) 07/26/2017 4:36 PM RAW SHELLFISH PREPARER Height 167.6 cm (5' 6) 07/26/2017 4:36 PM RAW SHELLFISH PREPARER Body Mass Index 22.27 07/26/2017 4:36 PM RAW SHELLFISH PREPARER Plan of Treatment Health Maintenance Due Date [...] to complete this topic Insurance [facility] Care Teams Cia Agent Relationship Specialty Start Date End Date Abel Montemayor MD [facility] [place] [address] [place] [phone] PCP - General Family Medicine 07/26/17
--- NOTE | 2024-12-08 09:48 | P.PNOB_ITS ---
OB - Triage/Final Diagnosis Visit Information Comments/Additional reasons for admission: I have assessed the risk for this patient, Belen Mueller, and determined that she would benefit from observation care. Evaluation Laboratory results: Laboratory Tests 11/22/24 11/23/24 23:18 11:49 WBC 10.4 H RBC 3.45 L Hgb 9.5 L Hct 28.7 L MCV 83.2 MCH 27.5 MCHC 33.1 RDW 13.2 Plt Count 209 MPV 10.4 Sodium 136 L Potassium 3.4 Chloride 109 H Carbon Dioxide 20 L Anion Gap 7 BUN 9 Creatinine 0.56 L Estim Creat Clear Calc 118 Estimated GFR > 60 Glucose 125 H Calcium 8.3 L Total Bilirubin 0.3 AST 24 ALT 17 Alkaline Phosphatase 93 Troponin I < 0.012 Total Protein 6.5 Albumin 3.1 L Urine Color Yellow Urine Appearance Cloudy H Urine pH 6.0 Ur Specific [place] 1.016 Urine Protein Trace Urine Glucose (UA) Negative Urine Ketones Negative Ur Blood (Man) Negative Urine Nitrate Negative Urine Bilirubin Negative Urine Urobilinogen 0.2 Add Ur Microanalysis Reviewed Leukocyte Esterase Rfl 3+ H Urine RBC 0-2 Urine WBC >100 H Ur Squamous Epith Cells Moderate Urine Bacteria 4+ H Urine Casts 3-5 Urine Mucus Present Final Diagnosis (1) Decreased movement: Code(s): O36.8190 - Decreased movements, unspecified trimester, not applicable or unspecified Status: Acute
== END 2024-11-23 12:55 | disposition home or self-care (01) ==
LOC: ANHOBPP 11-23 11:15 → ANHOBOP 11-25 08:07 → ANHLDR 11-25 08:07
PROVIDERS: Admitting Provider Obstetrics & Gynecology; PCP Family Medicine; Visit Provider Obstetrics & Gynecology
DX: O36.8190 Decreased fetal movements, unspecified trimester, not applicable or unspecified (principal); Z3A.00 Weeks of gestation of pregnancy not specified
CPT/HCPCS: 36415; 80053; 81001; 84484; 85027; 93005; 96360; 96361; 99199; A9270; G0378; G0379; J7120

== ENCOUNTER 2025-01-06 11:36 | Observation (INO) | payer OTHER, SELFPAY ==
--- OUTSIDE RECORDS SUMMARY | 2025-01-06 11:56 | XMS_ITS | Referral Summary ---
Author Organization [facility] [address] Address [address] [place] [address] Care Team Providers Care Remote Recruiter Name Role Phone Hayde Lees MD Primary Care Provider [phone]- [phone] Encounters Date Type Department Care Team Description 12/04/2024 Telephone [facility] [address] [place] [phone] Timoteo Huff MD echo results 12/03/2024 Telephone [facility] Card[facility] [address] [place] [address] [place] [phone] Unknown, Notinfile 12/02/2024 1:13 PM CDT - 12/02/2024 11:59 PM CDT Hospital Encounter [facility] Non-invasive Cardiac Diagnostic Testing [address] [place] [address] Abnormal EKG; 32 weeks gestation of ; Sinus tachycardia Discharge Disposition: Discharge to home or self care 12/02/2024 9:00 AM CDT Office Visit [facility] Cardiology [address] [place] [phone] Timoteo Huff MD Lipid screening (Primary Dx); Chest pain, unspecified type; Abnormal EKG; 32 weeks gestation of ; Sinus tachycardia from Last 3 Months Allergies Active Allergy Reactions Criticality Noted Date Comments Covid-19 Vacc,Mrna(Moderna)-Pf Itching High 02/24 Dermatographia Medications escitalopram (LEXAPRO) 20 mg tablet Take 1 tablet (20 mg total) by mouth daily 11/27/2024 Active buPROPion XL (WELLBUTRIN XL) 150 mg 24 hr tablet Take 1 tablet (150 mg total) by mouth daily 11/27/2024 Active Active Problems Problem Noted Date Diagnosed Date Abnormal EKG 12/02/2024 Sinus tachycardia 12/02/2024 32 weeks gestation of 12/02/2024 Estimated Date of Delivery Comme nts Yes 01/01/2025 Social History Tobacco Use Types Packs/Day Years Used Date Smoking Tobacco: Never Tobacco Cessation:Counseling Given: Not Answered Estimated Date of Delivery Comme nts Yes 01/01/2025 Sex and Gender Information Value Date Recorded Sex Assigned at Not on file Legal Sex Female 10:39 AM CDT Gender Identity Not on file Sexual Orientation Not on file Last Filed Vital Signs Vital Sign Reading Time Taken Comments Blood Pressure 122/74 12/02/2024 9:50 AM CDT Pulse 103 12/02/2024 9:50 AM CDT Temperature - - Respiratory Rate 14 12/02/2024 9:50 AM CDT Oxygen Saturation 96% 12/02/2024 9:50 AM CDT Inhaled Oxygen Concentration - - Weight 91.6 kg (202 lb) 12/02/2024 9:50 AM CDT Height 167.6 cm (5' 6) 12/02/2024 9:50 AM CDT Body Mass Index 32.6 12/02/2024 9:50 AM CDT Plan of Treatment Not on file Procedures Procedure Name Priority Date/Time Associated Diagnosis Comments ELECTROCARDIOGRAM REPORT Routine 9:16 AM CDT Chest pain, unspecified type Abnormal EKG TRANSTHORACIC ECHO (TTE) COMPLETE W DOPPLER/CF WO CONTRAST Routine 12/02/2024 2:14 PM CDT Abnormal EKG 32 weeks gestation of Sinus tachycardia POCT LIPID PANEL Routine 12/02/2024 11:0 7 AM CDT Lipid screening from Last 3 Months Results * Electrocardiogram Report (12/03/2024 9:16 AM CDT) us Timoteo Huff MD ECG ORDERABLES Cece foreman Result * TRANSTHORACIC ECHO (TTE) COMPLETE W DOPPLER/CF WO CONTRAST (12/02/2024 2:14 PM CDT) EF Mod BP 67 % CONS SCIMAGE Anatomical Region Laterality Modality Ultrasound 12/02/2024 1:34 PM CDT Narrative 12/02/2024 2:31 [place] [address] Echocardiogram Report Patient Name: CAROLA MUELLER : 1985 Study Date: 12/02/2024 1:34:39 PM Gender: F Tech: ZAHIRA Location: OP Ref Provider: TIMOTEO HUFF Height(Cm): 168 BSA: 2.07 Weight(Kg): 91.6 Heart Rate: 93 BP: 122/74 Quality: Good Order Provider: TIMOTEO HUFF PROCEDURES: Echocardiographic Report: Transthoracic echocardiogram with complete 2D, M-Mode, and color Doppler examination. INDICATIONS: R94.31 Abnormal electrocardiogram (ECG) (EKG), Z3A.32 32 weeks gestation of , and R00.0 Tachycardia, unspecified. MEASUREMENTS: 2D/MM Value Range Doppler Value Range EF Teich 2D 56.5 percent [ 54.0 - 74.0 ] ANAND Vmax 2.06 cm2 EF Mod BP 67 % [ 54 - 74 ] AV Mean PG 6 mmHg LVIDd 2D 3.80 cm [ 3.80 - 5.20 ] AV Peak Hernan 1.18 m/s [ 1.00 - 1.70 ] LVIDs 2D 2.70 cm [ 2.20 - 3.50 ] AV VTI 19.26 cm LVPWd 2D 0.99 cm [ 0.60 - 0.90 ] LVOT Diam 1.83 cm IVSd 2D 0.89 cm [ 0.60 - 0.90 ] LVOT Peak Hernan 0.93 m/s [ 0.70 - 1.10 ] LA Dimension 2D 2.61 cm [ 2.70 - 3.80 ] LVOT VTI 17.93 cm LA Dimension MM 3.28 cm [ 2.70 - 3.80 ] SI LVOT 23.5 ml/m2 [ >= 35.0 ] AoR Diam MM 2.57 cm [ 2.70 - 3.70 ] MV E Peak Hernan 0.58 m/s [ 0.60 - 1.30 ] ACS MM 1.41 cm MV A Peak Hernan 0.63 m/s [ 1.00 - 1.20 ] MV Mean PG 1 mmHg MV PHT 43 msec [ 20 - 100 ] MVA PHT 5.10 cm2 MV Decel Time 615 msec [ 104 - 258 ] MR PISA 0.34 PV Peak Hernan 1.13 m/s [ 0.40 - 0.80 ] TR Peak Hernan 3.06 m/s [ 1.00 - 2.80 ] TR Peak PG 38 mmHg RVSP 43.00 mmHg [ 10.00 - 36.00 ] E` 0.13 m/s E/E` 4.51 2D/MM Value Range Doppler Value Range - FINDINGS: Atrial Septum: Normal atrial septum. Left Ventricle: Normal left ventricular size. Normal left ventricular systolic function with no focal wall motion abnormalities. Left ventricular wall thickness upper limits of normal. Impaired diastolic relaxation Grade I. Ejection fraction is measured at 67 %. Left Atrium: The left atrium is normal in size. Right Ventricle: Normal right ventricular size. Normal right ventricular systolic function. Right Atrium: The right atrium is normal in size. Aortic Valve: Normal structure of the aortic valve. No evidence of hemodynamically significant aortic stenosis by Doppler. Mitral Valve: Normal structure of the mitral valve. No mitral valve regurgitation is seen. Pulmonic Valve: Normal structure of the pulmonic valve. No evidence of pulmonic regurgitation. Tricuspid Valve: Normal structure of the tricuspid valve. Mild pulmonary hypertension based on right ventricular systolic pressure. Estimated peak RVSP is 43 mmHg. Mild tricuspid regurgitation. Pericardium: Normal pericardium with no significant pericardial effusion. Aorta: Normal aortic root. IVC: Normal size and normal respiratory collapse consistent with normal right atrial pressure (<5 mmHg). Pulmonary Artery: Pulmonary artery not well visualized. CONCLUSIONS: Technically difficult study with suboptimal visualization. Normal left ventricular size. Normal left ventricular systolic function with no focal wall motion abnormalities. Left ventricular wall thickness upper limits of normal. Impaired diastolic relaxation Grade I. Ejection fraction is measured at 67 %. Normal right ventricular size. Normal right ventricular systolic function. Normal structure of the mitral valve. No mitral valve regurgitation is seen. Normal structure of the aortic valve. No evidence of hemodynamically significant aortic stenosis by Doppler. Normal structure of the tricuspid valve. Mild pulmonary hypertension based on right ventricular systolic pressure. Estimated peak RVSP is 43 mmHg. Mild tricuspid regurgitation. Normal pericardium with no significant pericardial effusion. Electronically Signed By: Sharon Adams MD 12/02/2024 2:30:43 PM CDT Procedure Note Sharon Adams MD - 12/02/2024 [place] [address] Echocardiogram Report Patient Name: CAROLA MUELLER : 1985 Study Date: 12/02/2024 1:34:39 PM Gender: F Tech: ZAHIRA Location: OP Ref Provider: TIMOTEO HUFF Height(Cm): 168 BSA: 2.07 Weight(Kg): 91.6 Heart Rate: 93 BP: 122/74 Quality: Good Order Provider: TIMOTEO HUFF PROCEDURES: Echocardiographic Report: Transthoracic echocardiogram with complete 2D, M-Mode, and color Dopplerexamination. INDICATIONS: R94.31 Abnormal electrocardiogram (ECG) (EKG), Z3A.32 32 weeks gestationof , and R00.0 Tachycardia, unspecified. MEASUREMENTS: 2D/MM Value Range DopplerValue Range EF Teich 2D 56.5 percent [ 54.0 - 74.0 ] ANAND Vmax2.06 cm2 EF Mod BP 67 % [ 54 - 74 ] AV Mean PG 6mmHg LVIDd 2D 3.80 cm [ 3.80 - 5.20 ] AV Peak Vel1.18 m/s [ 1.00 - 1.70 ] LVIDs 2D 2.70 cm [ 2.20 - 3.50 ] AV VTI19.26 cm LVPWd 2D 0.99 cm [ 0.60 - 0.90 ] LVOT Diam1.83 cm IVSd 2D 0.89 cm [ 0.60 - 0.90 ] LVOT Peak Vel0.93 m/s [ 0.70 - 1.10 ] LA Dimension 2D 2.61 cm [ 2.70 - 3.80 ] LVOT VTI17.93 cm LA Dimension MM 3.28 cm [ 2.70 - 3.80 ] SI LVOT23.5 ml/m2 [ >= 35.0 ] AoR Diam MM 2.57 cm [ 2.70 - 3.70 ] MV E Peak Vel0.58 m/s [ 0.60 - 1.30 ] ACS MM 1.41 cm MV A Peak Vel0.63 m/s [ 1.00 - 1.20 ] MV Mean PG 1 mmHg MV PHT 43 msec [ 20 - 100 ] MVA PHT 5.10 cm2 MV Decel Time 615 msec [ 104 - 258 ] MR PISA 0.34 PV Peak Hernan 1.13 m/s [ 0.40 - 0.80 ] TR Peak Hernan 3.06 m/s [ 1.00 - 2.80 ] TR Peak PG 38 mmHg RVSP 43.00 mmHg [ 10.00 - 36.00 ] E` 0.13 m/s E/E` 4.51 2D/MM Value Range DopplerValue Range - FINDINGS: Atrial Septum: Normal atrial septum. Left Ventricle: Normal left ventricular size. Normal left ventricular systolic functionwith no focal wall motion abnormalities. Left ventricular wall thickness upper limits ofnormal. Impaired diastolic relaxation Grade I. Ejection fraction is measured at 67%. Left Atrium: The left atrium is normal in size. Right Ventricle: Normal right ventricular size. Normal right ventricular systolicfunction. Right Atrium: The right atrium is normal in size. Aortic Valve: Normal structure of the aortic valve. No evidence of hemodynamicallysignificant aortic stenosis by Doppler. Mitral Valve: Normal structure of the mitral valve. No mitral valve regurgitation isseen. Pulmonic Valve: Normal structure of the pulmonic valve. No evidence of pulmonicregurgitation. Tricuspid Valve: Normal structure of the tricuspid valve. Mild pulmonary hypertension basedon right ventricular systolic pressure. Estimated peak RVSP is 43 mmHg. Mildtricuspid regurgitation. Pericardium: Normal pericardium with no significant pericardial effusion. Aorta: Normal aortic root. IVC: Normal size and normal respiratory collapse consistent with normal rightatrial pressure (<5 mmHg). Pulmonary Artery: Pulmonary artery not well visualized. CONCLUSIONS: Technically difficult study with suboptimal visualization. Normal left ventricular size. Normal left ventricular systolic functionwith no focal wall motion abnormalities. Left ventricular wall thickness upper limits ofnormal. Impaired diastolic relaxation Grade I. Ejection fraction is measured at 67%. Normal right ventricular size. Normal right ventricular systolicfunction. Normal structure of the mitral valve. No mitral valve regurgitation isseen. Normal structure of the aortic valve. No evidence of hemodynamicallysignificant aortic stenosis by Doppler. Normal structure of the tricuspid valve. Mild pulmonary hypertension basedon right ventricular systolic pressure. Estimated peak RVSP is 43 mmHg. Mildtricuspid regurgitation. Normal pericardium with no significant pericardial effusion. Electronically Signed By: Sharon Adams MD 12/02/2024 2:30:43 PM CDT us Timoteo Huff MD CV ECHO PROCEDURES F inal Result * (ABNORMAL) POCT lipid panel (12/02/2024 11:07 AM CDT) Cholesterol, POC 303 <200 MG/DL HDL, POC 62 >=40 mg/dL Triglycerides, POC 459(A) <=149 mg/dL LDL Cholesterol POC 149(A) <=129 mg/dL Chol/HDL Ratio, POC 4.9 NONE Non-HDL Cholesterol, POC 241 NONE mg/dL Cholesterol Total, POC 303(A) 30 - 199 mg/dL Capillary blood 12/02/2024 1 1:07 AM CDT us Timoteo Huff MD POINT OF CARE TEST O RDERAKERRY Final Result from Last 3 Months Insurance [facility] CHO[facility] PLUS Care Teams Remote Recruiter Relationship Specialty Start Date End Date Hayde Lees MD [address] [place] [address] PCP - General Family Medicine 11/26/24
--- OUTSIDE RECORDS SUMMARY | 2025-01-06 11:56 | XMS_ITS | Clinical Summary ---
Author Organization [facility] Address [address] [place] [address] Care Team Providers Care Systems Support Officer Name Role Phone Abel Montemayor MD Primary Care Provider [phone] Source Comments [employer] [facility],non-owned Affiliates and Associated Physician Practices is amultiple site organization consisting of ambulatory clinics and hospital sitesin [place], [place], [place] and [place]. This disclosure is being madepursuant to the Care Everywhere program and may not contain all information available regarding this patient. Last updated 18.[employer] Allergies No known active allergies Medications * [...] fluticasone propionate (FLONASE) 50 MCG/ACT nasal spray [place] 2 sprays into each nostril once daily [...] on file Legal Sex Female 9:44 AM DIE CAST PATTERNMAKER Gender Identity Not on file Sexual Orientation Not on file Last Filed Vital Signs Vital Sign Reading Time Taken Comments Blood Pressure 104/62 07/26/2017 4:36 PM DIE CAST PATTERNMAKER Pulse 85 07/26/2017 4:36 PM DIE CAST PATTERNMAKER Temperature 36.9 C (98.5 F) 07/26/2017 4:36 PM DIE CAST PATTERNMAKER Respiratory Rate 16 07/26/2017 4:36 PM DIE CAST PATTERNMAKER Oxygen Saturation 98% 07/26/2017 4:36 PM DIE CAST PATTERNMAKER Inhaled Oxygen Concentration - - Weight 62.6 kg (138 lb) 07/26/2017 4:36 PM DIE CAST PATTERNMAKER Height 167.6 cm (5' 6) 07/26/2017 4:36 PM DIE CAST PATTERNMAKER Body Mass Index 22.27 07/26/2017 4:36 PM DIE CAST PATTERNMAKER Plan of Treatment Health Maintenance Due Date Last Done Comments HIV SCREENING 2000 HEPATITIS C SCREENING 09/22/2003 DTAP/TDAP/TD VACCINES (1 - Tdap) 2004 HEPATITIS B VACCINE (1 of 3 - 19+ 3-dose series) 2004 HPV VACCINE (1 - 3-dose SCDM series) 2012 COVID-19 VACCINE (1 - 2023-2 5 season) 2024 DEPRESSION SCREENING 06/12/2024 INFLUENZA VACCINE (#1) 2025 ZOSTER VACCINE (1 of 2) 09/27/2035 [...] patient's age to complete this topic Insurance [employer] Care Teams Systems Support Officer Relationship Specialty Start Date End Date Abel Montemayor MD [facility] [place] [id number] PCP - General Family Medicine 07/26/17
--- OUTSIDE RECORDS SUMMARY | 2025-01-06 11:56 | XMS_ITS | Clinical Summary ---
Author Organization [facility] [address] Address [address] [place] [address] Care Team Providers Care Furnace Tender Name Role Phone Hayde Lees MD Primary Care Provider [phone] Allergies Active Allergy Reactions Criticality Noted Date [...] Date of Delivery Comme nts Yes 01/01/2025 Encounters Date Type Department Care Team Description 12/04/2024 Telephone [facility] Cardiology [address] [place] [phone] Timoteo Huff MD echo results 12/03/2024 Telephone [facility] Cardiology [address] [place] [phone] Unknown, Notinfile 12/02/2024 1:13 PM CDT - 12/02/2024 11:59 PM CDT Hospital Encounter [facility] Non-invasive Cardiac Diagnostic Testing [address] [place] [address] Abnormal EKG; 32 weeks gestation of ; Sinus tachycardia Discharge Disposition: Discharge to home or self care 12/02/2024 9:00 AM CDT Office Visit [facility] Cardiology [address] [facility] [address] [place] [phone] Timoteo Huff MD Lipid screening (Primary Dx); Chest pain, unspecified type; Abnormal EKG; 32 weeks gestation of ; Sinus tachycardia from Last 3 Months Medical History Medical History Date Comments Chest pain Family History Medical History Relation Name Comments No Known Problems Father Heart disease Maternal Grandmother Hypertension Mother Heart attack Other Uncle Relation Name Status Comments Father Alive Maternal Grandmother Mother Alive Other Uncle Social History Tobacco Use Types Packs/Day Years Used Date Smoking Tobacco: Never Tobacco Cessation:Counseling Given: Not Answered Estimated Date of Delivery Comme nts Yes 01/01/2025 Sex and Gender Information Value Date Recorded Sex Assigned at Not on file Legal Sex Female 10:39 AM CDT Gender Identity Not on file Sexual Orientation Not on file Obstetrics History Para Term AB IAB SAB Ectopic Multiple Livin g Live Births 1 Date Outcome GA Total Labor Labor/2nd/3rd Weight Sex Type Anes PTL Steph A1 A5 Name Clin Current Last Filed Vital Signs Vital Sign Reading [...] 12/02/2024 9:50 AM CDT Plan of Treatment Health Maintenance Due Date Last Done Comments Cervical Cancer Screening 1985 Depression Screening 1985 Hepatitis C Screening 1985 Varicella Vaccines (1 of 2 - 13+ 2-dose series) 1998 Hepatitis B Screening 09/27/2003 Regular Well Visit/Exam 18-64 09/27/2003 HPV Vaccines (1 - 3-dose SCDM series) 2012 Covid-19 Vaccine ( season) 2024 04/25/2022, 04/23/2021, 10/08/2020, Additional history exists Influenza Vaccine (#1) 2025 2, 03/11/2021, 03/03/2020, Additional history exists DTaP/Tdap/Td Vaccine (2 - Td or Tdap) 04/30/2029 04/30/2019 Pneumococcal vaccine <65 Aged Out No longer eligible based on patient's age to complete this topic Procedures Procedure Name Priority Date/Time Associated Diagnosis Comments ELECTROCARDIOGRAM REPORT Routine 025 9:16 AM CDT Chest pain, unspecified type Abnormal EKG TRANSTHORACIC ECHO (TTE) COMPLETE W DOPPLER/CF WO CONTRAST Routine 12/02/2024 2:14 PM CDT Abnormal EKG 32 weeks gestation of Sinus tachycardia POCT LIPID PANEL Routine 12/02/2024 11:0 7 AM CDT Lipid screening from Last 3 Months Results * Electrocardiogram Report (12/03/2024 9:16 AM CDT) us Timoteo Huff MD ECG ORDERABLES Cece ahsan Result * TRANSTHORACIC ECHO (TTE) COMPLETE W DOPPLER/CF WO CONTRAST (12/02/2024 2:14 PM CDT) EF Mod BP 67 % CONS SCIMAGE Anatomical Region Laterality Modality Ultrasound 12/02/2024 1:34 PM CDT Narrative 12/02/2024 2:31 PM CDT [address], [place] [address] Echocardiogram Report Patient Name: CAROLA MUELLER : [...] Procedure Note Sharon Adams MD - 12/02/2024 [place] [address] Echocardiogram Report Patient Name: CAROLA MUELLER : [...] Sharon Adams MD 12/02/2024 2:30:43 PM CDT Timoteo Huff MD CV ECHO PROCEDURES F [...] Capillary blood 12/02/2024 1 1:07 AM CDT Timoteo Huff MD POINT OF CARE TEST O RDERABLES Final Result from Last 3 Months Insurance [facility] CHOICE PLUS Care Teams Furnace Tender Relationship Specialty Start Date End Date Hayde Lees MD [address] [facility] [address] [place] [address] PCP - General Family Medicine 11/26/24
[2025-01-06 12:04] VITALS: BP 125/73; PULSE 106
--- NOTE | 2025-01-06 12:32 | PM.IMHP ---
H&P: HPI History of Present Illness Date/Time: 01/06/25 12:32 Chief Complaint: Labor at term Narrative: 39-year-old female 3737 weeks gestation confirmed by early ultrasound presents at 37 half weeks gestation in active labor. She has had some social issues during this but otherwise is been relatively uncomplicated Review of Systems Review of Systems: All systems reviewed & are unremarkable except as noted in HPI and below PMFSH Family History Family History Mother Family history of malignant neoplasm of breast in first degree relative Family history of elevated blood lipids Grandparent Family history of heart disease in male family member before age 55 Father Family history of elevated blood lipids Social History Social History Smoking status: Never smoker Second hand tobacco smoke exposure: No Alcohol intake: current Substance use: never Do You Feel Safe in your Home?: Yes Lack of Transportation: No Lack of Food: Never True Current Housing: I Have Housing Concerned About Future Housing: No Difficulty Paying Gas/Electric Bills: No Difficulty Paying for Meds: No Currently Unemployed: No Education: Bachelor's Degree Difficulty w/ Childcare or Family Care: No Gender identity (if verbalized by the patient): Female Spiritual care concerns: No Meds Home Medications and Allergies Home Medications ?Medication ?Instructions ?Recorded ?Confirmed ?Type vit no.95-ferrous 1 tablet PO DAILY 06/20/19 11/15/24 History fumarate 28 mg-folic acid 800 mcg tablet () bupropion HCl 150 mg 24 hr tablet, 100 mg PO DAILY@0800 10/05/24 11/15/24 History extended release escitalopram oxalate 10 mg tablet 10 mg PO DAILY 10/06/24 11/15/24 History nitrofurantoin 100 mg PO Q12HR 3 days #6 caps 11/15/24 Rx monohydrate/macrocrystals 100 mg capsule (Macrobid) Allergies Allergy/AdvReac Type Severity Reaction Status Date / Time No Known Allergies Allergy Verified 11/15/24 19:21 Vital Signs Vital Signs - 24 hr 01/06/25 12:04 Pulse Rate 106 H Blood Pressure 125/73 Exam Const: General: cooperative, healthy appearing, comfortable and uncomfortable Nutritional Appearance: average body habitus Orientation/consciousness: oriented to person, oriented to place and oriented to time Resp: Effort & Inspection: normal respiratory effort Cardio: Rate: regular rate Rhythm: regular rhythm Heart sounds: S1 normal heart sound present and S2 normal heart sound present GI: Inspection: normal to inspection (Gravid soft uterus) : External Female Exam: normal external appearance Speculum Exam - Vagina: normal appearance of the vagina Speculum Exam - Cervix: normal appearance of the cervix (Cervix 1.5 50% heart tones were irregular contractions) Assessment and Plan Assessment and plan (1) Term : Code(s): Z34.90 - Encounter for supervision of normal , unspecified, unspecified trimester Status: Acute Plan Spontaneous vaginal delivery expected she is an epidural candidate.
[2025-01-06 14:08] VITALS: BMI 33.4
--- NOTE | 2025-01-06 14:08 | OBADM ---
This patient, Belen Mueller, admitted to the OB room Labor/Delivery/Recovery 104 for observation. Patient/family oriented to hospital policies and general routines including ID bracelet, bed and alarms, visiting hours, pain management, procedures, bathroom and other care routines, personal items, smoking policy, room service/diet, and visiting hours. Patient/Family are encouraged to report perceived risks to care and to ask questions if they do not understand what they are told or what they should do.
--- NOTE | 2025-01-07 08:23 | PM.OBTRLD ---
OB - Triage/Final Diagnosis Visit Information Reason for evaluation: threatened labor Comments/Additional reasons for admission: I have assessed the risk for this patient, Belen Mueller, and determined that she would benefit from observation care. Evaluation Vital signs: Vital Signs - 24 hr 01/06/25 12:04 Pulse Rate 106 H Blood Pressure 125/73
== END 2025-01-06 14:25 | disposition home or self-care (01) ==
PROVIDERS: Admitting Provider Obstetrics & Gynecology; PCP Family Medicine; Visit Provider Obstetrics & Gynecology
DX: O47.1 False labor at or after 37 completed weeks of gestation (principal); Z3A.37 37 weeks gestation of pregnancy
CPT/HCPCS: G0378; G0379

== ENCOUNTER 2025-01-08 21:54 | Inpatient (IN) | payer OTHER, SELFPAY ==
[2025-01-08 22:00] VITALS: TEMP 36.8
--- OUTSIDE RECORDS SUMMARY | 2025-01-08 23:34 | XMS_ITS | Encounter Summary ---
Author Organization [facility] [place] [facility] Address [facility] [place] [address] Care Team Providers Care Sales Support Advisor Name Role Phone Hayde Lees MD Primary Care Provider [phone] Encounter Details Date Type Department Care Team (Late st Contact Info) Description 06/06/2021 MyChart Message Enc [facility] Family Medicine - [place] [address], [address] [place] [address] Hayde Lees MD [address] [facility] [address] [place] [address] Massage Social History Tobacco Use [...] Information Value Date Recorded Sex Assigned at Female 11/27/2024 2:33 PM CDT Legal Sex Female 4:01 PM STEEL UNLOADER Gender Identity Female 11/27/2024 2:33 PM CDT Sexual Orientation Not on file COVID-19 Exposure Response Date Recorded In the last month, have you been in contact with someone who was confirmed or suspected to have Coronavirus / COVID-19? No / Unsure 05/19/2021 10:05 AM STEEL UNLOADER documented as of this encounter Plan of Treatment Not on file documented as of this encounter Visit Diagnoses Not on filedocumented in this encounter Additional Health Concerns Assessment Noted Time PHQ-9 Depression Total Score: 0 07/01/19 2:03 PM STEEL UNLOADER documented as of this encounter Care Teams Sales Support Advisor Relationship Specialty Start Date End Date Hayde Lees MD [address] [address] PCP - General FAMILY PRACTICE 04/21/21 documented as of this encounter
--- OUTSIDE RECORDS SUMMARY | 2025-01-08 23:34 | XMS_ITS | Referral Summary ---
Author Organization [facility] [address] Address [address] [place] [address] Care Team Providers Care Material Attendant Name Role Phone Hayde Lees MD Primary Care Provider [phone] Encounters Date Type Department Care Team Description 12/04/2024 Telephone [facility] Cardiology [address] [place] [phone] Timoteo Huff MD echo results 12/03/2024 Telephone [facility] Cardiology [address] [place] [address] [place] [phone] Unknown, Notinfile 12/02/2024 1:13 PM CDT - 12/02/2024 11:59 PM CDT Hospital Encounter [facility] Non-invasive Cardiac Diagnostic Testing [address] [place] [address] Abnormal EKG; 32 weeks gestation of ; Sinus tachycardia Discharge Disposition: Discharge to home or self care 12/02/2024 9:00 AM CDT Office Visit [facility] Cardiology [address] [place] [phone] Timoteo Huff MD Lipid screening (Primary [...] PM CDT Narrative 12/02/2024 2:31 [place] [address] Echocardiogram Report Patient Name: CAROLA MUELLER : [...] Procedure Note Sharon Adams MD - 12/02/2024 [place] [address] Echocardiogram Report Patient Name: CAROLA MUELLER : [...] Final Result from Last 3 Months Insurance [facility] CHOICE PL[facility] H[facility]PPO Address: [place] [address] Care Teams Material Attendant Relationship Specialty Start Date End Date Hayde Lees MD [address] [facility] [address] [place] [address] PCP - General Family Medicine 11/26/24
--- OUTSIDE RECORDS SUMMARY | 2025-01-08 23:34 | XMS_ITS | Encounter Summary ---
Author Organization [facility] Address [facility] [place] [address] Care Team Providers Care Riprap Worker Name Role Phone Hayde Lees MD Primary Care Provider [phone] Encounter Details Date Type Department Care Team (Late st Contact Info) Description 11/01/2021 MyChart Message Enc [facility] Medical Group Family Medicine - [place] [address] [facility], [address] [place] [address] Hayde Lees MD [address] [facility] [address] [place] [address] Salmonella Social History Tobacco Use [...] PM CDT Legal Sex Female 4:01 PM CAMPUS DIRECTOR Gender Identity Female 11/27/2024 2:33 PM CDT Sexual Orientation Not on file documented as [...] Total Score: 0 07/01/19 21 2:03 PM CAMPUS DIRECTOR documented as of this encounter Care Teams Riprap Worker Relationship Specialty Start Date End Date Hayde Lees MD [address] [phone] PCP - General FAMILY PRACTICE 04/21/21 documented as of this encounter
--- OUTSIDE RECORDS SUMMARY | 2025-01-08 23:34 | XMS_ITS | Encounter Summary ---
Author Organization [facility] Address [facility] [place] [address] Care Team Providers Care Audograph Operator Name Role Phone Hayde Lees MD Primary Care Provider [phone] Encounter Details Date Type Department Care Team (Late st Contact Info) Description 06/19/2021 MyChart Message Enc [facility] Medical Group Family Medicine - [place] [address] [facility], [address] [place] [address] Hayde Lees MD [address] [facility] [address] [place] [address] OCD / anxiety Social History [...] PM CDT Legal Sex Female 4:01 PM PERIODONTAL ASSISTANT Gender Identity Female 11/27/2024 2:33 PM CDT Sexual Orientation Not on file COVID-19 Exposure Response Date Recorded In the last month, have you been in contact with someone who was confirmed or suspected to have Coronavirus / COVID-19? No / Unsure 06/10/2021 9:11 AM PERIODONTAL ASSISTANT documented as of this encounter Progress Notes * Hayde Lees MD - 06/21/2021 8:54 AM CST Agree with seeing counselor. We can also increase dose or change to another SSRI but sertraline is used for OCD. I think OCD is mostly treated with counseling. I would recommend she see me in 4-6 weeks after seeing counselor to discuss. ODONTAL ASSISTANT documented in this encounter Plan of Treatment Not on file documented as of this encounter Visit Diagnoses Not on filedocumented in this encounter Additional Health Concerns Assessment Noted Time PHQ-9 Depression Total Score: 0 07/01/19 21 2:03 PM PERIODONTAL ASSISTANT documented as of this encounter Care Teams Audograph Operator Relationship Specialty Start Date End Date Hayde Lees MD [address] [address] PCP - General FAMILY PRACTICE 04/21/21 documented as of this encounter
--- OUTSIDE RECORDS SUMMARY | 2025-01-08 23:34 | XMS_ITS | Encounter Summary ---
Author Organization [facility] Address [facility] [place] [address] Care Team Providers Care Rodeo Performer Name Role Phone Hayde Lees MD Primary Care Provider [phone] Encounter Details Date Type Department Care Team (Late st Contact Info) Description 05/04/2022 SeoPult Message Enc [facility] Medical Group Family Medicine - [place] [address] [facility], [address] [place] [address] [facility] Provider medication refill request Social History Tobacco [...] PM CDT Legal Sex Female 4:01 PM CAMP COORDINATOR Gender Identity Female 11/27/2024 2:33 PM CDT Sexual Orientation Not on file documented as of this encounter Plan of Treatment Not on file documented as of this encounter Visit Diagnoses Not on filedocumented in this encounter Additional Health Concerns Assessment Noted Time PHQ-9 Depression Total Score: 0 07/01/19 21 2:03 PM CAMP COORDINATOR documented as of this encounter Care Teams Rodeo Performer Relationship Specialty Start Date End Date Hayde Lees MD [address] [facility] [address] [place] [address] PCP - General FAMILY PRACTICE 04/21/21 documented as of this encounter
--- OUTSIDE RECORDS SUMMARY | 2025-01-08 23:34 | XMS_ITS | Encounter Summary ---
Author Organization [facility] Address [address] [place] [address] Care Team Providers Care Loss Control Engineer Name Role Phone Hayde Lees MD Primary Care Provider Encounter Details Date Type Department Care Team (Late st Contact Info) Description 10/30/2024 Coull Message [facility] Patient Accounts [address] [place], [place] [address] [facility] Provider Auto Payment Declined Social History Tobacco Use Types Packs/Day Years [...] PM CDT Legal Sex Female 4:01 PM GEEK SQUAD [employer] Gender Identity Female 11/27/2024 2:33 PM CDT Sexual Orientation Not on file documented as of this encounter Plan of Treatment Not on file documented as of this encounter Visit Diagnoses Not on filedocumented in this encounter Additional Health Concerns Assessment Noted Time PHQ-9 Depression Total Score: 4 04/03/20 24 10:23 AM CDT documented as of this encounter Care Teams Loss Control Engineer Relationship Specialty Start Date End Date Hayde Lees MD [address] [address] [place] [address] PCP - General FAMILY PRACTICE 04/21/21 documented as of this encounter
--- OUTSIDE RECORDS SUMMARY | 2025-01-08 23:34 | XMS_ITS | Encounter Summary ---
Author Organization [facility] Address [facility] [place] [address] Care Team Providers Care Golf Ball Cover Treater Name Role Phone Hayde Lees MD Primary Care Provider [phone] Encounter Details Date Type Department Care Team (Late st Contact Info) Description 07/08/2021 MyCCanvita Message Enc [facility] Medical Group Family Medicine - [place] [address] [facility], [address] [place] [address] Mychart, [facility] Provider Mychart Question Social History Tobacco Use [...] PM CDT Legal Sex Female 4:01 PM ASSOCIATE DIRECTOR OF NURSING Gender Identity Female 11/27/2024 2:33 PM CDT Sexual Orientation Not on file COVID-19 Exposure Response Date Recorded In the last month, have you been in contact with someone who was confirmed or suspected to have Coronavirus / COVID-19? No / Unsure 06/10/2021 9:11 AM ASSOCIATE DIRECTOR OF NURSING documented as of this encounter Plan of Treatment Not on file documented as of this encounter Visit Diagnoses Not on filedocumented in this encounter Additional Health Concerns Assessment Noted Time PHQ-9 Depression Total Score: 0 07/01/19 2:03 PM ASSOCIATE DIRECTOR OF NURSING documented as of this encounter Care Teams Golf Ball Cover Treater Relationship Specialty Start Date End Date Hayde Lees MD [address] [phone] PCP - General FAMILY PRACTICE 04/21/21 documented as of this encounter
--- OUTSIDE RECORDS SUMMARY | 2025-01-08 23:34 | XMS_ITS | Encounter Summary ---
Author Organization [facility] Address [facility] [place] [address] Care Team Providers Care Wall And Floor Tiler Name Role Phone Hayde Lees MD Primary Care Provider [phone] Encounter Details Date Type Department Care Team (Late st Contact Info) Description 09/16/2024 [facility] Message [facility] Provider ACTION REQUIRED Social History Tobacco Use [...] PM CDT Legal Sex Female 4:01 PM BUSINESS CENTER ATTENDANT Gender Identity Female 11/27/2024 2:33 PM CDT Sexual Orientation Not on file documented as of this encounter Plan of Treatment Not on file documented as of this encounter Visit Diagnoses Not on filedocumented in this encounter Additional Health Concerns Assessment Noted Time PHQ-9 Depression Total Score: 4 04/03/20 24 10:23 AM CDT documented as of this encounter Care Teams Wall And Floor Tiler Relationship Specialty Start Date End Date Hayde Lees MD [address] [facility] [address] [place] [address] PCP - General FAMILY PRACTICE 04/21/21 documented as of this encounter
--- OUTSIDE RECORDS SUMMARY | 2025-01-08 23:34 | XMS_ITS | Encounter Summary ---
Author Organization [facility] Address [address] [place] [address] Care Team Providers Care Wafer Cutter Name Role Phone Hayde Lees MD Primary Care Provider [phone] Reason for Visit * Reason Onset Date Comments Appointment Request 07/04/2022 VV request Encounter Details Date Type Department Care Team (Late st Contact Info) Description 07/04/2022 MyCHarper Love Adhesivet Message Enc [facility] Medical Group Family Medicine - [place] [address] [facility], [address] [place] [address] Hayde Lees MD [address] [address] Sinuses Social History Tobacco Use [...] PM CDT Legal Sex Female 4:01 PM LEATHER ETCHER Gender Identity Female 11/27/2024 2:33 PM CDT [...] her a vv appointment today 20 min. HER ETCHER documented in this encounter Plan of Treatment Not on file documented as of this encounter Visit Diagnoses Not on filedocumented in this encounter Additional Health Concerns Assessment Noted Time PHQ-9 Depression Total Score: 0 07/01/19 2:03 PM LEATHER ETCHER documented as of this encounter Care Teams Wafer Cutter Relationship Specialty Start Date End Date Hayde Lees MD [address] [phone] PCP - General FAMILY PRACTICE 04/21/21 documented as of this encounter
--- OUTSIDE RECORDS SUMMARY | 2025-01-08 23:34 | XMS_ITS | Clinical Summary ---
Author Organization [facility] Address [address] [place] [address] Care Team Providers Care Office Analyst Name Role Phone Hayde Lees MD Primary Care Provider Allergies Active Allergy Reactions Criticality Noted Date Comments Covid-19 Mrna Vacc (Moderna) Itching High 023 Dermatographia Medications calcium-magnesiu m-zinc 333-133-5 MG Tab Take 1 tablet by mouth daily. Active buPROPion XL (WELLBUTRIN XL) 150 MG 24 hr tabletIndication s:Generalized anxiety disorder Take 1 tablet (150 mg total) by mouth daily. 90 tablet 11/27/2024 Active escitalopram (LEXAPRO) 20 MG tabletIndication s:Anxiety with depression Take 1 tablet (20 mg total) by mouth daily. 90 tablet 11/27/2024 Active Active Problems Problem Noted Date Diagnosed Date Mixed obsessional thoughts and acts 09/07/2022 Anxiety with depression 05/05/2020 Low back pain, unspecified b ack pain laterality, unspecified chronicity, unspecified whether sciatica present 05/05/2020 Resolved Problems Problem Noted Date Diagnosed Date Resolved Date Healthcare maintenance 05/05/202005/11 Encounters Date Type Department Care Team Description 11/27/2024 2:20 PM CDT Telemedicine [facility] Medical Group Family Medicine - [place], [address] [place] [address] Hayde Lees MD Follow Up (Follow-up with anxiety and depression - [facility] ) 11/27/2024 Travel 10/30/2024 Betsy Message [facility] [place] [address] [facility] Provider Auto Payment Declined from Last 3 Months Immunizations Immunization Administration [...] PM CDT Legal Sex Female 4:01 PM NEWCOMER HOSTESS Gender Identity Female 11/27/2024 2:33 PM CDT Sexual Orientation Not on file Last Filed [...] 12:59 AM CDT Height 167.6 cm (5' 6) 12/19/2023 12:59 AM CDT Body Mass Index 23.4 12/19/2023 12:59 AM CDT Plan of Treatment Health Maintenance Due Date Last Done Comments Cervical Cancer Screening Pap Smear (Age 30 to 64) Every 3 Years 1985 Hepatitis C 09/27/2003 Hepatitis B Vaccines (1 of 3 - 19+ 3-dose series) 2004 HPV Vaccines (1 - 3-dose SCDM series) 2012 Annual Physical 04/21/2022 04/21/2021 Cervical Cancer Screening Pap with HPV Testing (Age 30 to 64) Every 5 Years 04/03/2023 04/03/2018 Cervical Cancer Screening with HPV 04/03/2023 COVID-19 Vaccine ( season) 2024 04/25/2022, 04/23/2021, 10/08/2020, Additional history exists PHQ-2 (Physician [place]) 06/12/2024 04/03/2024 DTaP, Tdap and Td Vaccines (2 - Td or Tdap) 04/30/2029 04/30/2019 Meningococcal B Vaccine Aged Out No l [...] Most Recently Relevant to Health Maintenance Insurance [facility] Care Teams Office Analyst Relationship Specialty Start Date End Date Hayde Lees MD [address] [facility] [address] [place] [phone] PCP - General FAMILY PRACTICE 04/21/21
--- OUTSIDE RECORDS SUMMARY | 2025-01-08 23:34 | XMS_ITS | Clinical Summary ---
Author [facility] [address] Address [address] [place] [address] Care Team Providers Care Mill Tender Name Role Phone Hayde Lees MD Primary Care Provider [phone] Allergies Active Allergy Reactions Criticality Noted Date [...] Type Department Care Team Description 12/04/2024 Telephone [facility] Medical Group Cardiology [address] [place] [phone] Timoteo Huff MD echo results 12/03/2024 Telephone [facility] Cardiology [address] [place] [phone] Unknown, Notinfile 12/02/2024 1:13 PM CDT - 12/02/2024 11:59 PM CDT Hospital Encounter [facility] Non-invasive Cardiac Diagnostic Testing [address] [place] [address] Abnormal EKG; 32 weeks gestation of ; Sinus tachycardia Discharge Disposition: Discharge to home or self care 12/02/2024 9:00 AM CDT Office Visit [facility] Medical Group Cardiology [address] [facility] [address] [place] [phone] Timoteo Huff MD Lipid screening (Primary [...] PM CDT Narrative 12/02/2024 2:31 PM CDT [address], [place] [address] Echocardiogram Report Patient Name: CAROLA MUELLER : [...] Procedure Note Sharon Adams MD - 12/02/2024 [place] [address] Echocardiogram Report Patient Name: CAROLA MUELLER : [...] Final Result from Last 3 Months Insurance [facility] CHOICE PLUS Care Teams Mill Tender Relationship Specialty Start Date End Date Hayde Lees MD [address] [facility] [address] [place] [address] PCP - General Family Medicine 11/26/24
--- OUTSIDE RECORDS SUMMARY | 2025-01-08 23:34 | XMS_ITS | Clinical Summary ---
Author Organization [facility] [employer] Address [address] [facility] [place] [address] Care Team Providers Care Medical Secretary Name Role Phone Abel Montemayor MD Primary Care Provider [phone] Source Comments [employer],non-owned Affiliates and Associated Physician Practices is amultiple site organization consisting of ambulatory clinics and hospital sitesin [place], [place], [place] and [place]. This disclosure is being madepursuant to the Care Everywhere program and may not contain all information available regarding this patient. Last updated 18.ASYM III Allergies No known active allergies Medications * [...] fluticasone propionate (FLONASE) 50 MCG/ACT nasal spray [place] 2 sprays into each nostril once daily [...] on file Legal Sex Female 9:44 AM MACHINE CERAMIC COATER Gender Identity Not on file Sexual Orientation Not on file Last Filed Vital Signs Vital Sign Reading Time Taken Comments Blood Pressure 104/62 07/26/2017 4:36 PM MACHINE CERAMIC COATER Pulse 85 07/26/2017 4:36 PM MACHINE CERAMIC COATER Temperature 36.9 C (98.5 F) 07/26/2017 4:36 PM MACHINE CERAMIC COATER Respiratory Rate 16 07/26/2017 4:36 PM MACHINE CERAMIC COATER Oxygen Saturation 98% 07/26/2017 4:36 PM MACHINE CERAMIC COATER Inhaled Oxygen Concentration - - Weight 62.6 kg (138 lb) 07/26/2017 4:36 PM MACHINE CERAMIC COATER Height 167.6 cm (5' 6) 07/26/2017 4:36 PM MACHINE CERAMIC COATER Body Mass Index 22.27 07/26/2017 4:36 PM MACHINE CERAMIC COATER Plan of Treatment Health Maintenance Due Date [...] patient's age to complete this topic Insurance [facility] Care Teams Medical Secretary Relationship Specialty Start Date End Date Abel Montemayor MD [facility] [place] [phone] PCP - General Family Medicine 07/26/17
[2025-01-08 23:43] VITALS: BMI 34.1
--- NOTE | 2025-01-08 23:44 | LDADM ---
This patient, Belen Mueller, was admitted to Labor/Delivery/Recovery 101 on 01/08/25 at 21:54. Plans for labor, pain management and were discussed with patient. Patient/family oriented to hospital policies and general routines including ID bracelet, bed and alarms, visiting hours, pain management, procedures, bathroom and other care routines, personal items, smoking policy, room service/diet and guest tray routines, security routines, and visiting hours. Patient/Family are encouraged to report perceived risks to care and to ask questions if they do not understand what they are told or what they should do. See OBIX for further documentation.
[2025-01-08 23:46] LABS: Hematocrit 28.8 % (37.0-47.0); Hemoglobin 9.1 g/dL (12.0-15.0); Immature Granulocyte Percent A 0.7 % (0-0.5); Lymphocytes Absolute Auto 1.45 K/mm3 (0.9-3.2); Mean Corpuscular HGB Conc 31.6 g/dl (32-36); Mean Corpuscular Hemoglobin 24.3 pg (26-34); Mean Corpuscular Volume 77.0 fl (80-100); Nucleated Red Blood Cells Absolute Auto 0.000 K/mm3 (0.0-0.012); Nucleated Red Blood Cells Perc 0.0 % (0.0-0.2); Platelet Count Result 246 k/mm3 (150-375); Red Blood Count 3.74 M/mm3 (4.2-5.4); White Blood Count 10.7 K/mm3 (4.5-10.0)
[2025-01-08 23:49] VITALS: PULSE 98; O2SAT 99
[2025-01-08 23:54] VITALS: PULSE 96; O2SAT 100
[2025-01-08 23:59] VITALS: PULSE 91; O2SAT 100
[2025-01-09] VITALS (157 sets, daily range): BP systolic 65–156; BP diastolic 31–100; PULSE 75–215; RESP 18–19; TEMP 36.4–37; O2SAT 81–100
[2025-01-09 00:26] LABS: Syphilis IgG/IgM Antibody Non-Reactive (Nonreactive)
[2025-01-09] MEDS: LACTATED RINGERS 1,000 ML 125 ML IV CONT (03:19)
--- NOTE | 2025-01-09 05:40 | P.PNAN_ITS ---
Anes - Eval Pre Procedure Procedure: Labor Epidural Date/Time: 01/09/25 05:40 Surgeon: Ann Marie Preop Diagnosis: Labor Pain Pre Op Diagnosis: Contractions Patient Data Age: 39 Gender: F Height: 1.68 m Weight: 96 kg Last Vital Signs Temp 36.6 C 01/09/25 04:00 Pulse 90 01/09/25 03:59 BP 122/76 01/09/25 03:59 Pulse Ox 95 01/09/25 03:10 Allergies Allergy/AdvReac Type Severity Reaction Status Date / Time No Known Allergies Allergy Verified 01/06/25 14:12 Home Medications ?Medication ?Instructions ?Recorded ?Confirmed ?Type vit no.95-ferrous 1 tablet PO DAILY 06/20/19 01/09/25 History fumarate 28 mg-folic acid 800 mcg tablet () bupropion HCl 150 mg 24 hr tablet, 100 mg PO DAILY@0800 10/05/24 01/09/25 History extended release escitalopram oxalate 10 mg tablet 20 mg PO DAILY 10/06/24 01/09/25 History Laboratory Tests 01/08/25 23:41 WBC 10.7 H K/mm3 (4.5-10.0) RBC 3.74 L M/mm3 (4.2-5.4) Hgb 9.1 L g/dL (12.0-15.0) Hct 28.8 L % (37.0-47.0) MCV 77.0 L fl (80-100) MCH 24.3 L pg (26-34) MCHC 31.6 L g/dl (32-36) RDW 14.2 % (11.5-14.5) Plt Count 246 k/mm3 (150-375) MPV 11.0 H fl (7.4-10.4) Immature Gran % (Auto) 0.7 H % (0-0.5) Neut % (Auto) 78.3 H % (45.5-73.1) Lymph % (Auto) 13.5 L % (18.3-44.2) [place] % (Auto) 6.4 % (2.6-8.5) Eos % (Auto) 0.7 % (0-4.4) Baso % (Auto) 0.4 % (0.2-1.2) Lymph # (Auto) 1.45 K/mm3 (0.9-3.2) [place] # (Auto) 0.7 H K/mm3 (0.1-0.6) Eos # (Auto) 0.1 K/mm3 (0-0.3) Baso # (Auto) 0.0 K/mm3 (0.0-0.1) Abs Immat Gran (auto) 0.07 H K/mm3 (0.00-0.031) Absolute Neuts (auto) 8.4 H K/mm3 (1.3-6.7) Absolute Nucleated RBC 0.000 K/mm3 (0.0-0.012) Nucleated RBC % 0.0 % (0.0-0.2) Syphilis IgG/IgM Ab Non-reactive (Nonreactive) Blood Type A Positive Antibody Screen Negative Patient hx anesthesia problems: none Family hx anesthesia problems: none Results Review: All pre-operative results and documents have been reviewed as part of the pre- operative evaluation. [facility] Family History Family History Mother Family history of malignant neoplasm of breast in first degree relative Family history of elevated blood lipids Grandparent Family history of heart disease in male family member before age 55 Father Family history of elevated blood lipids Social History Social History Smoking status: Never smoker Second hand tobacco smoke exposure: No Alcohol intake: current Substance use: never Do You Feel Safe in your Home?: Yes Lack of Transportation: No Lack of Food: Never True Current Housing: I Have Housing Concerned About Future Housing: No Difficulty Paying Gas/Electric Bills: No Difficulty Paying for Meds: No Currently Unemployed: YES Education: Associate Degree Difficulty w/ Childcare or Family Care: No Gender identity (if verbalized by the patient): Female Spiritual care concerns: No Exam Day of Procedure 01/09/25 05:40 Patient weight: overweight Heart: regular rate and rhythm Lungs: normal air movement Airway: Mallampati scale class II Neurological: alert and oriented
[2025-01-09] MEDS: ONDANSETRON INJ 4 MG/2 ML VIAL IV PUSH (06:41)
--- NOTE | 2025-01-09 06:59 | PM.IMHP ---
H&P: HPI History of Present Illness Date/Time: 01/09/25 06:59 Chief Complaint: Labor at term Narrative: 39-year-old multiparous patient at 38 weeks gestation complaining of regular contractions she spontaneously ruptured in the middle of the night. has been complicated by social issues but otherwise has been relatively Review of Systems Review of Systems: All systems reviewed & are unremarkable except as noted in HPI and below PMFSH Family History Family History Mother Family history of malignant neoplasm of breast in first degree relative Family history of elevated blood lipids Grandparent Family history of heart disease in male family member before age 55 Father Family history of elevated blood lipids Social History Social History Smoking status: Never smoker Second hand tobacco smoke exposure: No Alcohol intake: current Substance use: never Do You Feel Safe in your Home?: Yes Lack of Transportation: No Lack of Food: Never True Current Housing: I Have Housing Concerned About Future Housing: No Difficulty Paying Gas/Electric Bills: No Difficulty Paying for Meds: No Currently Unemployed: YES Education: Associate Degree Difficulty w/ Childcare or Family Care: No Gender identity (if verbalized by the patient): Female Spiritual care concerns: No Meds Home Medications and Allergies Home Medications ?Medication ?Instructions ?Recorded ?Confirmed ?Type vit no.95-ferrous 1 tablet PO DAILY 06/20/19 01/09/25 History fumarate 28 mg-folic acid 800 mcg tablet () bupropion HCl 150 mg 24 hr tablet, 100 mg PO DAILY@0800 10/05/24 01/09/25 History extended release escitalopram oxalate 10 mg tablet 20 mg PO DAILY 10/06/24 01/09/25 History Allergies Allergy/AdvReac Type Severity Reaction Status Date / Time No Known Allergies Allergy Verified 01/06/25 14:12 Vital Signs Vital Signs - 24 hr 01/08/25 22:00 01/08/25 23:49 01/08/25 23:54 Temperature 98.2 F Pulse Rate Blood Pressure Pulse Oximetry 99 100 01/08/25 23:59 01/09/25 00:00 01/09/25 00:04 Temperature 98.2 F Pulse Rate Blood Pressure Pulse Oximetry 100 100 01/09/25 00:09 01/09/25 00:14 01/09/25 01:00 Temperature Pulse Rate Blood Pressure Pulse Oximetry 100 100 100 01/09/25 01:04 01/09/25 01:09 01/09/25 01:14 Temperature Pulse Rate Blood Pressure Pulse Oximetry 100 99 99 01/09/25 01:19 01/09/25 01:24 01/09/25 01:29 Temperature Pulse Rate Blood Pressure Pulse Oximetry 100 99 100 01/09/25 01:30 01/09/25 01:34 01/09/25 01:39 Temperature Pulse Rate 105 H Blood Pressure 127/62 Pulse Oximetry 100 100 01/09/25 01:44 01/09/25 02:38 01/09/25 03:00 Temperature Pulse Rate 93 Blood Pressure 105/62 Pulse Oximetry 98 96 01/09/25 03:10 01/09/25 03:59 01/09/25 04:00 Temperature 97.9 F Pulse Rate 90 Blood Pressure 122/76 Pulse Oximetry 95 01/09/25 05:46 01/09/25 05:47 01/09/25 05:50 Temperature Pulse Rate 94 Blood Pressure 135/73 Pulse Oximetry 99 100 01/09/25 05:55 01/09/25 05:57 01/09/25 05:58 Temperature Pulse Rate 105 H 98 Blood Pressure 124/75 126/87 Pulse Oximetry 99 01/09/25 06:02 01/09/25 06:03 01/09/25 06:05 Temperature Pulse Rate 105 H 108 H Blood Pressure 156/72 H 131/70 Pulse Oximetry 100 01/09/25 06:07 01/09/25 06:08 01/09/25 06:10 Temperature Pulse Rate 92 135 H Blood Pressure 126/67 144/100 H Pulse Oximetry 99 01/09/25 06:13 01/09/25 06:15 01/09/25 06:17 Temperature Pulse Rate 91 107 H 113 H Blood Pressure 124/65 120/60 94/41 L Pulse Oximetry 99 01/09/25 06:18 01/09/25 06:20 01/09/25 06:23 Temperature Pulse Rate 114 H 120 H Blood Pressure 117/67 65/31 L Pulse Oximetry 91 93 01/09/25 06:25 01/09/25 06:27 01/09/25 06:28 Temperature Pulse Rate 105 H 116 H Blood Pressure 112/64 104/54 L Pulse Oximetry 99 01/09/25 06:30 01/09/25 06:32 01/09/25 06:33 Temperature Pulse Rate 108 H 97 Blood Pressure 98/46 L 110/61 Pulse Oximetry 99 01/09/25 06:35 01/09/25 06:37 01/09/25 06:38 Temperature Pulse Rate 97 105 H Blood Pressure 111/58 L 102/51 L Pulse Oximetry 96 01/09/25 06:40 01/09/25 06:42 01/09/25 06:43 Temperature Pulse Rate 115 H 93 Blood Pressure 96/52 L 112/73 Pulse Oximetry 98 01/09/25 06:45 01/09/25 06:47 01/09/25 06:48 Temperature Pulse Rate 99 92 Blood Pressure 113/57 L 111/62 Pulse Oximetry 100 01/09/25 06:53 01/09/25 06:55 01/09/25 06:57 Temperature Pulse Rate 90 106 H Blood Pressure 98/62 L 86/53 L Pulse Oximetry 81 L 01/09/25 06:58 Temperature Pulse Rate Blood Pressure Pulse Oximetry 98 Exam Const: General: cooperative, healthy appearing and average body habitus Orientation/consciousness: oriented to person, oriented to place and oriented to time Resp: Effort & Inspection: normal respiratory effort Cardio: Rate: regular rate Rhythm: regular rhythm Heart sounds: S1 normal heart sound present and S2 normal heart sound present GI: Inspection: normal to inspection (Gravid uterus) : External Female Exam: normal external appearance Speculum Exam - Vagina: normal appearance of the vagina Speculum Exam - Cervix: normal appearance of the cervix (5.5/75/-2. heart tones reassuring clear fluid seen) H&P: Results Labs Labs: Short CBC 01/08/25 Range/Units 23:41 WBC 10.7 H (4.5-10.0) K/mm3 Hgb 9.1 L (12.0-15.0) g/dL Hct 28.8 L (37.0-47.0) % Plt Count 246 (150-375) k/mm3 Assessment and Plan Assessment and plan (1) Term : Code(s): Z34.90 - Encounter for supervision of normal , unspecified, unspecified trimester Status: Acute Plan Epidural is in and working. Spontaneous vaginal delivery is expected
[2025-01-09] MEDS: OXYTOCIN 30 UNITS/NS 500 ML 30 UNITS/500 ML BAG IV CONT (08:03)
[2025-01-09 08:31] LABS: HIV 1/2 Ab P24 Ag Result Negative (Negative)
[2025-01-09] MEDS: FAMOTIDINE 20 MG/2 ML VIAL IV PUSH (09:49)
--- NOTE | 2025-01-09 12:21 | P.PCNOB_ITS ---
OB - Vaginal Delivery Note Procedure Delivery date: 01/09/25 Induction method: None Delivery augmentation: Pitocin Delivery monitor: External FHT, External Uterine and Internal Uterine Route of delivery: Episiotomy description: None Laceration Description: None Specimen: No Quantitative Blood Loss (ml): 62 Anesthesia type: Epidural Disposition: Floor Complications: No immediate complications Narrative: Patient was admitted at 30 weeks gestation spontaneous rupture to the 9 Pitocin augmentation was begun she got an epidural anesthesia placed. When she was complete she pushed delivered head spontaneously in the LAMONT position. Nuchal cord checked noted be loose x1 read around the occiput anterior posterior shoulder delivered spontaneously. Cord clamped x2 and cut passed off the table given Apgars of 7 [id number] 9 [id number]. Cord blood was drawn. Placenta delivered intact spontaneously. Twenty of Pitocin placed IV to help firm the uterus. The vagina was inspected no tears or lacerations were noted there were no immediate complications mom and baby doing fine at the time of dictation [place] Baby Date of : 01/09/25 Time of : 12:12 Gestational Age by Date: 38 gender: Female presentation: vertex position: Right Occiput Anterior Placenta delivery description: Spontaneous Cord Vessel Description: 3 Vessels, Nuchal Cord, Loose and Reduced score one minute: 7 score five minutes: 9
--- NOTE | 2025-01-09 12:23 | P.DS_ITS ---
DS: Admitting Diagnosis Discharge Date 01/10/2025 Admitting Diagnosis Term DS: Discharge Diagnosis Discharge Diagnosis (1) Term : Code(s): Z34.90 - Encounter for supervision of normal , unspecified, unspecified trimester Status: Acute DS: Summary Hospital Course Reason for hospitalization: Patient was admitted on the evening of 01/08/2025 in active labor underwent spontaneous vaginal delivery at 12:12 p.m. on 01/09/2025 with epidural anesthesia Hospital Course: Patient's hospital course unremarkable. Remained afebrile. She was up, voiding without difficulty, eating regular diet, ambulating, and generally without complaints. Time Spent with Patient Time attestation: Total time spent providing and/or coordinating discharge services: Exam Const: General: cooperative, healthy appearing and average body habitus Orientation/consciousness: oriented to person, oriented to place and oriented to time Resp: Effort & Inspection: normal respiratory effort Cardio: Rate: regular rate Rhythm: regular rhythm Heart sounds: S1 normal heart sound present and S2 normal heart sound present GI: Inspection: normal to inspection (Gravid uterus) : External Female Exam: normal external appearance Speculum Exam - Vagina: normal appearance of the vagina Speculum Exam - Cervix: normal appearance of the cervix (5.5/75/-2. heart tones reassuring clear fluid seen) DS: Data Data Completed and Pending Labs on day of discharge: Labs from last 24 hours 01/09/25 01/08/25 07:24 23:41 WBC 10.7 H RBC 3.74 L Hgb 9.1 L Hct 28.8 L MCV 77.0 L MCH 24.3 L MCHC 31.6 L RDW 14.2 Plt Count 246 MPV 11.0 H Immature Gran % (Auto) 0.7 H Neut % (Auto) 78.3 H Lymph % (Auto) 13.5 L [place] % (Auto) 6.4 Eos % (Auto) 0.7 Baso % (Auto) 0.4 Lymph # (Auto) 1.45 [place] # (Auto) 0.7 H Eos # (Auto) 0.1 Baso # (Auto) 0.0 Abs Immat Gran (auto) 0.07 H Absolute Neuts (auto) 8.4 H Absolute Nucleated RBC 0.000 Nucleated RBC % 0.0 Syphilis IgG/IgM Ab Non-reactive HIV 1&2 Ab/P24 Ag 4thGn Negative Blood Type A Positive Antibody Screen Negative Discharge Plan Discharge Attending physician on discharge: Forest Honeycutt Discharging Clinician: Forest Honeycutt Patient Disposition: Home Activity: may shower, no straining and pelvic rest Diet: heart healthy Wound Care Instructions: follow printed instructions Patient Instructions: Antibiotic Form Patient Language: Vietnamese Stand Alone Forms: General Discharge Information Follow-up/Referrals: Forest Honeycutt MD [Physician] - Discharge Medications: Continued PNV no.95-ferrous fumarate-FA [] 28 mg iron- 800 mcg Tablet 1 tablet PO DAILY bupropion HCl 150 mg tablet extended release 24 hr 100 mg PO DAILY@0800 escitalopram oxalate 10 mg tablet 20 mg PO DAILY Date of admission: 01/08/25 21:54 Primary Care Provider: Yoana,Hayde Nunez Admitting Provider: Forest Honeycutt Attending physician on admission: Forest Honeycutt Condition: Stable
[2025-01-09] MEDS: OXYTOCIN 30 UNITS/NS 500 ML 30 UNITS/500 ML BAG 125 UNITS IV CONT (12:49)
[2025-01-09] MEDS: IBUPROFEN 600 MG TABLET PO ×2 (16:24→23:34)
[2025-01-09] MEDS: DOCUSATE SODIUM 100 MG CAPSULE PO (16:24)
--- NOTE | 2025-01-09 16:57 | OBPPTRN ---
1530-Patient transferred to post room #284 via wheelchair. Support person present. Oriented to unit, room, information board, rooming in, admission packet and security measures. Patient verbalizes understanding.
[2025-01-10 04:30] VITALS: BP 131/80; PULSE 86; RESP 18; TEMP 36.7; O2SAT 100
[2025-01-10 05:28] LABS: Hematocrit 26.5 % (37.0-47.0); Hemoglobin 8.2 g/dL (12.0-15.0)
[2025-01-10 08:10] VITALS: BP 132/81; PULSE 81; RESP 16; TEMP 36.4; O2SAT 99
[2025-01-10] MEDS: IBUPROFEN 600 MG TABLET PO ×2 (08:30→17:34)
[2025-01-10] MEDS: DOCUSATE SODIUM 100 MG CAPSULE PO ×2 (08:30→17:34)
[2025-01-10] MEDS: MULTIVIT/MIN/PREN/FOL AC/IRON TABLET 1 TAB PO (08:30)
--- NOTE | 2025-01-10 09:12 | P.PNOB_ITS ---
OB - PN: Subj Subjective Date/time seen: 01/10/25 09:12 Patient comments: no complaints, pain well controlled and tolerating diet [place] baby status: doing well OB - PN: Obj Data Labs 01/10/25 04:42 Labs: Laboratory Results - last 24 hr 01/10/25 04:42 Hgb 8.2 L Hct 26.5 L OB - PN A/P Assessment and Plan (1) Term : Code(s): Z34.90 - Encounter for supervision of normal , unspecified, unspecified trimester Status: Acute Plan Comments: routine care Time Spent With Patient Time: Total time spent is greater than 50% in coordination of care (as documented) at patient's floor/unit and/or counseling patient: Review of Systems 2 Review of Systems: All systems reviewed & are unremarkable except as noted in HPI and below Exam 2 Const: General: cooperative, healthy appearing and average body habitus O rientation/consciousness: oriented to person, oriented to place and oriented to time Resp: Effort & Inspection: normal respiratory effort Cardio: Rate: regular rate Rhythm: regular rhythm Heart sounds: S1 normal heart sound present and S2 normal heart sound present GI: Inspection: normal to inspection (Gravid uterus) : External Female Exam: normal external appearance Speculum Exam - Vagina: normal appearance of the vagina Speculum Exam - Cervix: normal appearance of the cervix (5.5/75/-2. heart tones reassuring clear fluid seen)
[2025-01-10 12:15] VITALS: BP 112/63; PULSE 93; RESP 18; TEMP 37.2; O2SAT 97
[2025-01-10] MEDS: TETANUS,DIPHTHERIA,AC PERTUSSIS ADULT (0.5 ML) BOOSTRIX IM (19:56)
[2025-01-13 08:45] VITALS: BP 134/77; PULSE 72; RESP 18; TEMP 36.8; O2SAT 100
== END 2025-01-10 21:08 | disposition home or self-care (01) | DRG 807 ==
LOC: ANHLDR 01-09 12:24 → ANHOB2 01-09 15:38
PROVIDERS: Admitting Provider Obstetrics & Gynecology; PCP Family Medicine; Visit Provider Obstetrics & Gynecology
DX: O69.81X0 Labor and delivery complicated by cord around neck, without compression, not applicable or unspecified (principal); Z37.0 Single live birth; Z3A.38 38 weeks gestation of pregnancy
CPT/HCPCS: 36415; 85014; 85018; 85025; 86593; 86703; 86850; 86900; 86901; 90715; A9270; G0432; J2405; J2590; J2795; J7120

== ENCOUNTER 2025-01-16 09:38 | Outpatient (CLI) | payer OTHER, SELFPAY ==
--- NOTE | ~2025-01-16 | XR_ITS ---
EXAMINATION: XR chest 2V 01/16/2025 09:57 INDICATION: Shortness of breath. . PROCEDURE: 2 view chest COMPARISON: No prior studies for comparison. FINDINGS: The lungs are clear. The cardiomediastinal silhouette is within normal limits. There are no pleural effusions. There is no pneumothorax suspected. IMPRESSION: 1: NO ACUTE CARDIOPULMONARY DISEASE. Reviewed, dictated and finalized at location A.
--- OUTSIDE RECORDS SUMMARY | 2025-01-16 09:42 | XMS_ITS | Encounter Summary ---
Author Organization [facility] Address [facility] [place] [address] Care Team Providers Care Die Trimmer Name Role Phone Hayde Lees MD Primary Care Provider [phone] Encounter Details Date Type Department Care Team (Late st Contact Info) Description 06/19/2021 MyChart Message Enc [facility] Medical Group Family Medicine - [place] [address], [address] [place] [address] Hayde Lees MD [address] [facility] [address] [place] [address] OCD / anxiety Social History [...] PM CDT Legal Sex Female 4:01 PM SERVICE 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 No / Unsure 06/10/2021 9:11 AM SERVICE SECRETARY documented as of this encounter Progress Notes * Hayde Lees MD - 06/21/2021 8:54 AM CST Agree with seeing counselor. We can also increase dose or change to another SSRI but sertraline is used for OCD. I think OCD is mostly treated with counseling. I would recommend she see me in 4-6 weeks after seeing counselor to discuss. ICE SECRETARY documented in this encounter Plan of Treatment Not on file documented as of this encounter Visit Diagnoses Not on filedocumented in this encounter Additional Health Concerns Assessment Noted Time PHQ-9 Depression Total Score: 0 07/01/19 21 2:03 PM SERVICE SECRETARY documented as of this encounter Care Teams Die Trimmer Relationship Specialty Start Date End Date Hayde Lees MD [address] [address] PCP - General FAMILY PRACTICE 04/21/21 documented as of this encounter
--- OUTSIDE RECORDS SUMMARY | 2025-01-16 09:42 | XMS_ITS | Encounter Summary ---
Author Organization [facility] Address [facility] [place] [address] Care Team Providers Care Community Coordinator For [employer] Name Role Phone Hayde Lees MD Primary Care Provider [phone] Encounter Details Date Type Department Care Team (Late st Contact Info) Description 06/06/2021 MyChart Message Enc 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 No / Unsure 05/19/2021 10:05 AM SCREEN TENDER HELPER documented as of this encounter Plan of Treatment Not on file documented as of this encounter Visit Diagnoses Not on filedocumented in this encounter Additional Health Concerns Assessment Noted Time PHQ-9 Depression Total Score: 0 07/01/19 2:03 PM SCREEN TENDER HELPER documented as of this encounter Care Teams Community Coordinator For [employer] Relationship Specialty Start Date End Date Hayde Lees MD [address] [address] PCP - General FAMILY PRACTICE 04/21/21 documented as of this encounter
--- OUTSIDE RECORDS SUMMARY | 2025-01-16 09:42 | XMS_ITS | Encounter Summary ---
Author Organization [facility] Address [facility] [place] [address] Care Team Providers Care Sole Leveler Name Role Phone Hayde Lees MD Primary Care Provider [phone] Encounter Details Date Type Department Care Team (Late st Contact Info) Description 07/08/2021 [employer] Message Enc [facility] Medical Group Family Medicine - [place] [address] [facility] [address], [address] [place] [address] Mychart, [facility] Provider Mychart Question Social History [...] PM CDT Legal Sex Female 4:01 PM FINISHER FINE DIAMOND DIES Gender Identity Female 11/27/2024 2:33 PM CDT Sexual Orientation Not on file COVID-19 Exposure Response Date Recorded In the last month, have you been in contact with someone who was confirmed or suspected to have Coronavirus / COVID-19? No / Unsure 06/10/2021 9:11 AM FINISHER FINE DIAMOND DIES documented as of this encounter Plan of Treatment Not on file documented as of this encounter Visit Diagnoses Not on filedocumented in this encounter Additional Health Concerns Assessment Noted Time PHQ-9 Depression Total Score: 0 07/01/19 2:03 PM FINISHER FINE DIAMOND DIES documented as of this encounter Care Teams Sole Leveler Relationship Specialty Start Date End Date Hayde Lees MD [address] [phone] PCP - General FAMILY PRACTICE 04/21/21 documented as of this encounter
--- OUTSIDE RECORDS SUMMARY | 2025-01-16 09:42 | XMS_ITS | Encounter Summary ---
Author Organization [facility] Address [address] [place] [address] Care Team Providers Care Fancy Wire Drawer Name Role Phone Hayde Lees MD Primary Care Provider [phone] Encounter Details Date Type Department Care Team (Late st Contact Info) Description 10/30/2024 [employer] Message 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
--- OUTSIDE RECORDS SUMMARY | 2025-01-16 09:43 | XMS_ITS | Encounter Summary ---
Author Organization [facility] Address [address] [place] [address] Care Team Providers Care Forensic Photographer Name Role Phone Hayde Lees MD Primary Care Provider [phone] Reason for Visit * Reason Onset Date Comments Appointment Request 07/04/2022 VV request Encounter Details Date Type Department Care Team (Late st Contact Info) Description 07/04/2022 [employer] Message Enc [facility] Medical Group Family Medicine - [place] [address] [facility], [address] [place] [address] Hayde Lees MD [address] [address] Sinuses Social History Tobacco Use [...] PM CDT Legal Sex Female 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 Patient was not available. Left a vmm to contact us back. If patient calls back please offer her a vv appointment today 20 min. RVISOR UNLOADING documented in this encounter Plan of Treatment Not on file documented as of this encounter Visit Diagnoses Not on filedocumented in this encounter Additional Health Concerns Assessment Noted Time PHQ-9 Depression Total Score: 0 07/01/19 2:03 PM SUPERVISOR UNLOADING documented as of this encounter Care Teams Forensic Photographer Relationship Specialty Start Date End Date Hayde Lees MD [address] [phone] PCP - General FAMILY PRACTICE 04/21/21 documented as of this encounter
--- OUTSIDE RECORDS SUMMARY | 2025-01-16 09:43 | XMS_ITS | Encounter Summary ---
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
--- OUTSIDE RECORDS SUMMARY | 2025-01-16 09:43 | XMS_ITS | Encounter Summary ---
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
--- OUTSIDE RECORDS SUMMARY | 2025-01-16 09:43 | XMS_ITS | Clinical Summary ---
Author Organization [facility] Address [address] [facility] [place] [address] Care Team Providers Care Roofer Assistant Name Role Phone Abel Montemayor MD Primary Care Provider [phone] Source Comments [facility],non-owned Affiliates and Associated Physician Practices is amultiple site organization consisting of ambulatory clinics and hospital sitesin [place], [place], [place] and [place]. This disclosure is being madepursuant to the Care Everywhere program and may not contain all information available regarding this patient. 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 Gender Identity Not on file Sexual Orientation Not on file Last Filed Vital Signs Vital Sign Reading Time Taken Comments Blood Pressure 104/62 07/26/2017 4:36 PM METALLURGY TEACHER Pulse 85 07/26/2017 4:36 PM METALLURGY TEACHER Temperature 36.9 C (98.5 F) 07/26/2017 4:36 PM METALLURGY TEACHER Respiratory Rate 16 07/26/2017 4:36 PM METALLURGY TEACHER Oxygen Saturation 98% 07/26/2017 4:36 PM METALLURGY TEACHER Inhaled Oxygen Concentration - - Weight 62.6 kg (138 lb) 07/26/2017 4:36 PM METALLURGY TEACHER Height 167.6 cm (5' 6) 07/26/2017 4:36 PM METALLURGY TEACHER Body Mass Index 22.27 07/26/2017 4:36 PM METALLURGY TEACHER Plan of Treatment Health Maintenance Due [...] patient's age to complete this topic Insurance [facility] Care Teams Roofer Assistant Relationship Specialty Start Date End Date Abel Montemayor MD [facility] [place] [phone] PCP - General Family Medicine 07/26/17
--- OUTSIDE RECORDS SUMMARY | 2025-01-16 09:43 | XMS_ITS | Encounter Summary ---
Author Organization [facility] Address [facility] [place] [address] Care Team Providers Care Galley Hand Name Role Phone Hayde Lees MD Primary Care Provider [phone] Encounter Details Date Type Department Care Team (Late st Contact Info) Description 05/04/2022 [employer] Message Enc [facility] Family Medicine - [place] [address], [address] [place] [address] [facility] Provider medication refill request Social [...] PM CDT 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 Gender Identity Female 11/27/2024 2:33 PM CDT Sexual Orientation Not on file documented as of this encounter Plan of Treatment Not on file documented as of this encounter Visit Diagnoses Not on filedocumented in this encounter Additional Health Concerns Assessment Noted Time PHQ-9 Depression Total Score: 0 07/01/19 21 2:03 PM REMELT PAN TANK OPERATOR documented as of this encounter Care Teams Galley Hand Relationship Specialty Start Date End Date Hayde Lees MD [address] [facility] [address] [place] [address] PCP - General FAMILY PRACTICE 04/21/21 documented as of this encounter
--- OUTSIDE RECORDS SUMMARY | 2025-01-16 09:43 | XMS_ITS | Clinical Summary ---
Author Organization [facility] Address [address] [place] [address] Care Team Providers Care Exhauster Name Role Phone Hayde Lees MD Primary [...] Team Description 11/27/2024 2:20 PM CDT Telemedicine [facility] Family Medicine - [place], [address] [place] [address] Hayde Lees MD Follow Up (Follow-up with anxiety and depression - [facility] ) 11/27/2024 Travel 10/30/2024 [employer] Message [facility] [place] [address] 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
--- OUTSIDE RECORDS SUMMARY | 2025-01-16 09:43 | XMS_ITS | Clinical Summary ---
[facility] [address] Address [address] [place] [address] Care Team Providers Care Price Lister Name Role Phone Hayde Lees MD Primary Care Provider [phone] Allergies Active Allergy Reactions Criticality Noted Date [...] Type Department Care Team Description 12/04/2024 Telephone [facility] Cardiology [address] [place] [phone] Timoteo Huff MD echo results 12/03/2024 Telephone [facility] Card[facility] [address] [place] [phone] Unknown, Notinfile 12/02/2024 1:13 PM CDT - 12/02/2024 11:59 PM CDT Hospital Encounter [facility] Non-invasive Cardiac Diagnostic Testing [address] [place] [address] Abnormal EKG; 32 weeks gestation of ; Sinus tachycardia Discharge Disposition: Discharge to home or self care 12/02/2024 9:00 AM CDT Office Visit [facility] Cardiology [address] [facility] [address] [place] [phone] Timoteo Huff MD Lipid screening (Primary [...] PM CDT Narrative 12/02/2024 2:[address] PM [address]T [address], [place] [address] Echocardiogram Report Patient Name: CAROLA MUELLER : [...] Procedure Note Sharon Adams MD - 12/02/2024 [place] [address] Echocardiogram Report Patient Name: CAROLA MUELLER : [...] Final Result from Last 3 Months Insurance [facility] [employer] H[employer]/PPO Address: [facility] [address] [place] [address] Care Teams Price Lister Relationship Specialty Start Date End Date Hayde Lees MD [address] [facility] [address] [place] [address] PCP - General Family Medicine 11/26/24
== END 2025-01-16 09:39 | disposition home or self-care (01) ==
LOC: ANHIMG 09:40
PROVIDERS: PCP Family Medicine; Visit Provider Obstetrics & Gynecology
DX: R06.02 Shortness of breath (principal)
CPT/HCPCS: 71046